=== PATIENT | female | born 1950 | race Caucasian/White ===

== ENCOUNTER 2020-01-26 13:07 | Outpatient (RCR) | payer MEDICARE, SELFPAY ==
--- NOTE | 2020-01-26 14:13 | MHC.PT.DC ---
[facility] [place] [facility] [place] [facility] [place] Office [address] Danny Winston [address] [phone] F: [phone] F: [phone] F: [phone] F: [phone] Physical Therapy Discharge Report Diagnosis: low back pain Date of Surgery: none Date of Evaluation: 01/09/20 Date of Discharge: 01/26/20 Treatments to Date: 4 Cancellations to Date: 0 No Shows to Date: 1 Discharge Status: Achieved Goals Independent with HEP Discharge Summary: The patient arrived with no pain. She feels her pain has drastically reduced She feels she is now independent with her HEP. She is back to full PLOF without limiting pain. She is walking in the community normal distances without pain. 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 Please sign and return to therapist. Thank you for your referral.
== END 2020-02-16 13:48 | disposition other institution (70) ==
LOC: HO.PT 13:07
PROVIDERS: Visit Provider Internal Medicine
DX: M54.5 Low back pain (principal)
CPT/HCPCS: 97110; 97530

== ENCOUNTER → 2020-08-24 08:32 | Outpatient (BNVA) | payer MEDICARE, SELFPAY | PROVIDERS: PCP Internal Medicine; Visit Provider Physician Assistant | DX: M17.11 Unilateral primary osteoarthritis, right knee (principal) | CPT/HCPCS: 20610; 99202; J1040 ==

== ENCOUNTER 2020-08-24 08:55 | Outpatient (REF) | payer MEDICARE, SELFPAY ==
[2020-08-24 10:16] LABS: MANUAL DIFF FLAG NO
[2020-08-24 10:27] LABS: Basophils Absolute Auto 0.1 X10*3/uL (0.0-0.2); Basophils Percent Auto 1.3 % (0-2); Eosinophils Absolute Auto 0.4 X10*3/uL (0.0-0.4); Eosinophils Percent Auto 4.5 % (0-4); Hematocrit 41.4 % (37-47); Hemoglobin 13.2 g/dl (12.0-16.0); Imm Gran Abs Auto 0.03 X10*3/uL (0.00-0.03); Imm Gran Pct Auto 0.4 % (0.0-0.4); Lymphocytes Absolute Auto 2.3 X10*3/uL (1.2-4.9); Lymphocytes Percent Auto 29.9 % (20-40); Mean Corpuscular HGB Conc 31.9 g/dl (31.0-35.0); Mean Corpuscular Hemoglobin 27.7 pg (27.0-33.0); Mean Platelet Volume 10.4 fL (9.4-12.3); Monocytes Absolute Auto 0.7 X10*3/uL (0.1-1.2); Monocytes Percent Auto 8.7 % (2-11); Neutrophils Absolute Auto 4.3 X10*3/uL (2.0-8.3); Neutrophils Percent Auto 55.2 % (45-73); Platelet Count 259 X10*3/uL (160-400); Red Blood Count 4.76 X10*6/uL (4.20-5.50); Red Cell Distribution Width 13.4 % (11.0-16.0); White Blood Count 7.8 X10*3/uL (4.8-10.8)
[2020-08-24 10:59] LABS: Alanine Aminotransferase 12 U/L (0-31); Albumin Level 4.2 g/dL (3.5-5.0); Alkaline Phosphatase 99 U/L (39-117); Anion Gap 15 (12-20); Aspartate Amino Transferase 15 U/L (5-31); Bilirubin Total 0.5 mg/dL (0.0-1.0); Blood Urea Nitrogen 15 mg/dL (9-16); Calcium 9.3 mg/dL (8.4-10.2); Carbon Dioxide 26 mmol/L (22-29); Chloride 103 mmol/L (96-108); Cholesterol 171 mg/dL; Estimated Glomerular Filt Rate > 60; Glucose Fasting 119 mg/dL (60-99); HDL Cholesterol 42 mg/dL; LDL Cholesterol Calculated 96 mg/dl; Potassium 4.2 mmol/L (3.3-5.1); Sodium 140 mmol/L (135-145); Total Protein 7.1 g/dL (6.5-8.0); Triglycerides 165 mg/dL
== END 2020-08-24 08:56 | disposition home or self-care (01) ==
LOC: HO.10HDL 08:55
PROVIDERS: Visit Provider Internal Medicine
DX: Z00.00 Encounter for general adult medical examination without abnormal findings (principal); E78.00 Pure hypercholesterolemia, unspecified; I10 Essential (primary) hypertension; M17.11 Unilateral primary osteoarthritis, right knee
CPT/HCPCS: 36415; 80053; 80061; 85025

== ENCOUNTER 2020-09-19 12:33 | Outpatient (REF) | payer MEDICARE, SELFPAY ==
--- NOTE | ~2020-09-19 | MM_ITS ---
EXAMINATION: MM SCREENING DIGITAL BREAST TOMOSYNTHESIS, BILATERAL CLINICAL INFORMATION: Screening. Asymptomatic. The lifetime risk of breast cancer based on the Tyrer-Cuzick Model is 9%. COMPARISON: Mammography: 07/23/2018, outside mammography 12/30/2016, 11/10/2014 ([facility], [place]). TECHNIQUE: Digital breast tomosynthesis is performed in both the craniocaudal and mediolateral oblique views along with computer-aided detection (CAD). Synthesized 2D images are generated from the tomosynthesis. FINDINGS: There are scattered areas of fibroglandular density (ACR BI-RADS breast composition Category b). There is a fibronodular parenchymal pattern with scattered bilateral stable nodular asymmetries similar to prior exams. There is no developing density, significant mass, or architectural abnormality. Again, there are scattered bilateral isolated and grouped punctate round and grouped coarse calcifications, likely fibroadenomatous changes. The axilla and skin contours are unremarkable. No significant changes from prior exams. MM/MM tomosynthesis screening BI IMPRESSION: No significant changes from prior studies. ASSESSMENT: BI-RADS 2: Benign RECOMMENDATION: Routine annual mammography screening. This patient's information was entered into a reminder system with a target due date for their next mammogram.
== END 2020-09-19 12:34 | disposition home or self-care (01) ==
LOC: HO.MAMMO 12:33
PROVIDERS: PCP Internal Medicine; Visit Provider Internal Medicine
DX: Z12.31 Encounter for screening mammogram for malignant neoplasm of breast (principal)
CPT/HCPCS: 77063; 77067

== ENCOUNTER 2020-09-28 13:04 | Outpatient (REF) | payer MEDICARE, SELFPAY ==
--- NOTE | ~2020-09-28 | XR_ITS ---
EXAMINATION: XR SHOULDER, RIGHT CLINICAL INFORMATION: Pain COMPARISON: None TECHNIQUE: Right shoulder is imaged in 4 views. FINDINGS: There is elevation of the humeral head suggesting chronic rotator cuff degeneration. There are mild degenerative changes acromioclavicular joint and mild spurring greater tuberosity. There is some spurring at the inferior medial humeral head. No erosive change. No visible rotator cuff calcifications. No fracture, dislocation, destructive process. There are multilevel degenerative changes suggested in the cervical spine. XR/XR shoulder RT min 2V IMPRESSION: 1. Elevation humeral head and degenerative changes suggesting chronic rotator cuff degeneration. No visible rotator cuff calcifications. 2. Probable multilevel degenerative changes cervical spine.
== END 2020-09-28 13:05 | disposition home or self-care (01) ==
LOC: HO.XRAY 13:04
PROVIDERS: PCP Internal Medicine; Visit Provider Physician Assistant
DX: M19.011 Primary osteoarthritis, right shoulder (principal)
CPT/HCPCS: 20610; 73030; 99212; J1040

== ENCOUNTER 2020-11-21 16:00 | Outpatient (RCR) | payer MEDICARE, SELFPAY ==
--- NOTE | 2020-10-24 14:58 | MHC.PT.EP ---
[facility] [place] [facility] [place] [facility] [place] Office [address] Winston [address] [phone] F: [phone] F: [phone] F: [phone] F: [phone] Physical Therapy Plan of Care Date of Evaluation: Date of Surgery: Diagnosis: right shoulder impingement Assessment: The patient arrived with reduced shoulder ROM, strength, and functional reaching ability. Imaging shows an elevated humeral head. She likely suffers from secondary shoulder impingement. PT given strength exercises as well as postural improvement education. She is a good candidate for skilled PT Frequency and Duration: The patient will be seen 2x/week x 4 weeks Short Term Goals: Pt to be able to report 50% improvement in functional reaching. - Pt to be able to report 50% less pain with getting dressed. Fdc Goals: 4 weeks - The patient to have greater than 160 degrees of flexion and abduction to show improved functional ROM. 4 weeks ? The patient to have 5/5 strength with flexion and abduction to demonstrate functional strength 4 weeks ? The patient to be able to return to all functional reaching, self care ADL's without any limitation from pain or loss of ROM. Treatment Plan: Modalities to reduce pain, spasms and effusion. Manual therapy to restore motion and function. Therapeutic exercise to improve strength and flexibility. Neuromuscular re-education for posture and balance. Therapeutic activities to return to functional activities of daily living. Electronically signed by: Yasmin Butler PT DPT Please sign and return to therapist. Thank you for your referral.
--- NOTE | 2020-12-20 09:35 | MHC.PT.DC ---
[facility] [place] Office [place] Office [place] Office [address] Danny Winston [address] [phone] F: [phone] F: [phone] F: [phone] F: [phone] Physical Therapy Discharge Report Diagnosis: right shoulder impingement Date of Surgery: Date of Evaluation: 10/24/20 Date of Discharge: 12/20/20 Treatments to Date: 5 Cancellations to Date: No Shows to Date: Discharge Status: Achieved Goals Improved Function Independent with HEP Discharge Summary: Pt demonstrating increased pain free ROM and increased tolerance for strengthening exercises today. Pt continuing to present with TPs and tension in the R UT and mid trap regions that improve for a few days with STM. Electronically signed by: Yasmin Butler PT DPT Please sign and return to therapist. Thank you for your referral.
== END 2020-12-20 08:00 | disposition home or self-care (01) ==
LOC: HO.PT 16:00
PROVIDERS: PCP Internal Medicine; Visit Provider Internal Medicine
DX: M25.511 Pain in right shoulder (principal)
CPT/HCPCS: 97110; 97112; 97140; 97162

== ENCOUNTER 2021-01-15 12:50 | Outpatient (REF) | payer MEDICARE, SELFPAY ==
--- NOTE | ~2021-01-15 | XR_ITS ---
EXAMINATION: XR knee RT 2V, XR knee standing BI CLINICAL INFORMATION: Reason for Exam M25.569 - Pain in unspecified knee COMPARISON: 2019 TECHNIQUE: Bilateral frontal standing, right lateral patella sunrise view. FINDINGS: BONES: No fracture or dislocation is present. JOINTS: Narrowing of joint spaces and developed osteophytes from the edges of articular surfaces suggest degenerative osteoarthritis. SOFT TISSUE: There is chunky soft tissue calcification posterior to the joint unchanged possibly synovial osteochondromatosis, versus accessory ossicles unchanged. 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 No significant knee joint effusion. There is soft tissue calcification posterior to the joint as described above.
--- NOTE | ~2021-01-15 | XR_ITS ---
EXAMINATION: XR knee RT 2V, XR knee standing BI CLINICAL INFORMATION: Reason for Exam M25.569 - Pain in unspecified knee COMPARISON: 2019 TECHNIQUE: Bilateral frontal standing, right lateral patella sunrise view. FINDINGS: BONES: No fracture or dislocation is present. JOINTS: Narrowing of joint spaces and developed osteophytes from the edges of articular surfaces suggest degenerative osteoarthritis. SOFT TISSUE: There is chunky soft tissue calcification posterior to the joint unchanged possibly synovial osteochondromatosis, versus accessory ossicles unchanged. XR/XR knee standing BI IMPRESSION: Early advanced degenerative tricompartmental degenerative osteoarthritis both knees right more than left. No significant knee joint effusion. There is soft tissue calcification posterior to the joint as described above.
== END 2021-01-15 12:51 | disposition home or self-care (01) ==
LOC: HO.HOSX 12:50
PROVIDERS: Visit Provider Physician Assistant
DX: M17.11 Unilateral primary osteoarthritis, right knee (principal)
CPT/HCPCS: 20610; 73560; 73565; 99212; J1040

== ENCOUNTER → 2021-03-04 15:07 | Outpatient (BNVA) | payer MEDICARE, SELFPAY | PROVIDERS: PCP Internal Medicine; Visit Provider Orthopaedic Surgery | DX: M17.11 Unilateral primary osteoarthritis, right knee (principal) | CPT/HCPCS: 99212 ==

== ENCOUNTER → 2021-06-03 12:26 | Outpatient (BNVA) | payer MEDICARE, SELFPAY | PROVIDERS: PCP Internal Medicine; Visit Provider Orthopaedic Surgery | DX: M17.11 Unilateral primary osteoarthritis, right knee (principal) | CPT/HCPCS: 20610; 99212; J1100 ==

== ENCOUNTER 2021-09-20 11:29 | Outpatient (REF) | payer MEDICARE, SELFPAY ==
--- NOTE | ~2021-09-20 | XR_ITS ---
EXAMINATION: XR FOOT, LEFT CLINICAL INFORMATION: M79.672 - Pain in left foot COMPARISON: None TECHNIQUE: AP, lateral, and oblique views of the left foot. FINDINGS: No fracture, dislocation, destructive process. Normal bony mineralization. Retrocalcaneal recess is preserved. Subtalar joint unremarkable. No visible ankle capsular effusion. Small plantar calcaneal spur. Mild spurring dorsal medial mid foot. Osteoarthritic changes first MTP joint with joint narrowing and spurring. No erosive change. Mild hallux valgus, approximately 18 degrees. Mild joint narrowing DIP joints second through fourth toes. No erosive change. XR/XR foot LT min 3V IMPRESSION: -No fracture or destructive process. -Small plantar calcaneal spur. Mild spurring dorsal medial mid foot. -Osteoarthritis first MTP with mild hallux valgus. -Mild joint narrowing 2nd-4th DIP. -No erosive changes.
== END 2021-09-20 11:30 | disposition home or self-care (01) ==
LOC: HO.HOSX 11:29
PROVIDERS: PCP Internal Medicine; Visit Provider Orthopaedic Surgery
DX: M17.11 Unilateral primary osteoarthritis, right knee (principal); M19.072 Primary osteoarthritis, left ankle and foot
CPT/HCPCS: 20610; 73630; 99212; J1100

== ENCOUNTER → 2021-09-25 14:21 | Outpatient (BNVA) | payer MEDICARE, SELFPAY | PROVIDERS: PCP Internal Medicine; Visit Provider Orthopaedic Surgery | DX: M65.332 Trigger finger, left middle finger (principal); M79.645 Pain in left finger(s) | CPT/HCPCS: 20550; 99202; J1100 ==

== ENCOUNTER 2021-10-22 08:36 | Outpatient (REF) | payer MEDICARE, SELFPAY ==
[2021-10-22 09:13] LABS: MANUAL DIFF FLAG NO
[2021-10-22 10:03] LABS: Basophils Absolute Auto 0.1 X10*3/uL (0.0-0.2); Basophils Percent Auto 0.9 % (0-2); Eosinophils Absolute Auto 0.4 X10*3/uL (0.0-0.4); Eosinophils Percent Auto 4.4 % (0-4); Hematocrit 43.3 % (37.0-47.0); Hemoglobin 13.9 g/dl (12.0-16.0); Imm Gran Abs Auto 0.06 X10*3/uL (0.00-0.03); Imm Gran Pct Auto 0.7 % (0.0-0.4); Lymphocytes Absolute Auto 2.6 X10*3/uL (1.2-4.9); Lymphocytes Percent Auto 28.6 % (20-40); Mean Corpuscular HGB Conc 32.1 g/dl (31.0-35.0); Mean Corpuscular Hemoglobin 27.9 pg (27.0-33.0); Mean Corpuscular Volume 86.8 fL (80.0-98.0); Mean Platelet Volume 10.4 fL (9.4-12.3); Monocytes Absolute Auto 0.9 X10*3/uL (0.1-1.2); Monocytes Percent Auto 9.9 % (2-11); Neutrophils Percent Auto 55.5 % (45-73); Platelet Count 254 X10*3/uL (160-400); Red Blood Count 4.99 X10*6/uL (4.20-5.50); Red Cell Distribution Width 13.4 % (11.0-16.0); White Blood Count 8.9 X10*3/uL (4.8-10.8)
[2021-10-22 10:25] LABS: Estimated Average Glucose 126 mg/dL
[2021-10-22 10:32] LABS: Alanine Aminotransferase 24 U/L (0-31); Albumin Level 4.2 g/dL (3.5-5.0); Alkaline Phosphatase 88 U/L (39-117); Anion Gap 12 (12-20); Aspartate Amino Transferase 25 U/L (5-31); Bilirubin Total 0.4 mg/dL (0.0-1.0); Blood Urea Nitrogen 23 mg/dL (9-16); Calcium 9.4 mg/dL (8.4-10.2); Carbon Dioxide 26 mmol/L (22-29); Chloride 106 mmol/L (96-108); Cholesterol 199 mg/dL; Estimated Glomerular Filt Rate > 60; Glucose Random 132 mg/dL (60-115); HDL Cholesterol 48 mg/dL; LDL Cholesterol Calculated 121 mg/dl; Potassium 4.4 mmol/L (3.3-5.1); Sodium 140 mmol/L (135-145); Total Protein 7.3 g/dL (6.5-8.0); Triglycerides 151 mg/dL
[2021-10-22 10:52] LABS: Thyroid Stimulating Hormone 1.41 uIU/mL (0.32-4.0)
== END 2021-10-22 08:37 | disposition home or self-care (01) ==
LOC: HO.LAB 08:36
PROVIDERS: PCP Internal Medicine; Visit Provider Internal Medicine
DX: E78.2 Mixed hyperlipidemia (principal); F33.42 Major depressive disorder, recurrent, in full remission; I10 Essential (primary) hypertension; R73.01 Impaired fasting glucose
CPT/HCPCS: 36415; 80053; 80061; 83036; 84443; 85025

== ENCOUNTER → 2021-12-23 13:41 | Outpatient (BNVA) | payer MEDICARE, SELFPAY | PROVIDERS: PCP Internal Medicine; Visit Provider Orthopaedic Surgery | DX: M17.11 Unilateral primary osteoarthritis, right knee (principal) | CPT/HCPCS: 20610; 99212; J1100 ==

== ENCOUNTER 2022-01-08 13:52 | Outpatient (REF) | payer MEDICARE, SELFPAY ==
--- NOTE | ~2022-01-08 | MM_ITS ---
EXAMINATION: MM SCREENING DIGITAL BREAST TOMOSYNTHESIS, BILATERAL CLINICAL INFORMATION: Screening. Asymptomatic. The lifetime risk of breast cancer based on the Tyrer-Cuzick Model is 10%. COMPARISON: Mammography: 09/19/2020, 07/23/2018, outside mammography 12/30/2016 ([facility]). TECHNIQUE: Digital breast tomosynthesis is performed in both the craniocaudal and mediolateral oblique views along with computer-aided detection (CAD). Synthesized 2D images are generated from the tomosynthesis. FINDINGS: There are scattered areas of fibroglandular density (ACR BI-RADS breast composition Category b). Fibronodular parenchymal pattern is again noted similar to prior studies. There is no developing density or interval architectural abnormality. Scattered bilateral small isolated round and coarse grouped calcifications are again noted. The axilla and skin contours are unremarkable. There are no significant changes from prior studies. MM/MM tomosynthesis screening BI IMPRESSION: No mammographic evidence of malignancy. ASSESSMENT: BI-RADS 2: Benign RECOMMENDATION: Routine annual mammography screening. This patient's information was entered into a reminder system with a target due date for their next mammogram.
== END 2022-01-08 13:53 | disposition home or self-care (01) ==
LOC: HO.MAMMO 13:52
PROVIDERS: PCP Internal Medicine; Visit Provider Internal Medicine
DX: Z12.31 Encounter for screening mammogram for malignant neoplasm of breast (principal)
CPT/HCPCS: 77063; 77067

== ENCOUNTER → 2022-05-01 15:04 | Outpatient (BNVA) | payer MEDICARE, SELFPAY | PROVIDERS: PCP Internal Medicine; Visit Provider Orthopaedic Surgery | DX: M17.11 Unilateral primary osteoarthritis, right knee (principal) | CPT/HCPCS: 99212 ==

== ENCOUNTER → 2022-07-10 14:57 | Outpatient (BNVA) | payer MEDICARE, SELFPAY | PROVIDERS: PCP Internal Medicine; Visit Provider Orthopaedic Surgery ==

== ENCOUNTER 2022-07-16 08:15 | Outpatient (REF) | payer MEDICARE, SELFPAY ==
[2022-07-16 08:25] LABS: MANUAL DIFF FLAG NO
[2022-07-16 08:38] LABS: Basophils Absolute Auto 0.1 X10*3/uL (0.0-0.2); Basophils Percent Auto 0.8 % (0-2); Eosinophils Absolute Auto 0.4 X10*3/uL (0.0-0.4); Eosinophils Percent Auto 4.3 % (0-4); Hematocrit 44.7 % (37.0-47.0); Hemoglobin 14.4 g/dl (12.0-16.0); Imm Gran Abs Auto 0.04 X10*3/uL (0.00-0.03); Imm Gran Pct Auto 0.5 % (0.0-0.4); Lymphocytes Absolute Auto 2.9 X10*3/uL (1.2-4.9); Mean Corpuscular HGB Conc 32.2 g/dl (31.0-35.0); Mean Corpuscular Hemoglobin 28.5 pg (27.0-33.0); Mean Corpuscular Volume 88.3 fL (80.0-98.0); Mean Platelet Volume 10.2 fL (9.4-12.3); Monocytes Absolute Auto 0.8 X10*3/uL (0.1-1.2); Monocytes Percent Auto 8.9 % (2-11); Neutrophils Absolute Auto 4.4 x10*3/uL (2.0-8.3); Neutrophils Percent Auto 51.5 % (45-73); Platelet Count 253 X10*3/uL (160-400); Red Blood Count 5.06 X10*6/uL (4.20-5.50); Red Cell Distribution Width 12.8 % (11.0-16.0); White Blood Count 8.6 X10*3/uL (4.8-10.8)
[2022-07-16 09:12] LABS: Alanine Aminotransferase 24 U/L (0-31); Albumin Level 4.3 g/dL (3.5-5.0); Alkaline Phosphatase 89 U/L (39-117); Anion Gap 13 (12-20); Aspartate Amino Transferase 27 U/L (5-31); Bilirubin Total 0.4 mg/dL (0.0-1.0); Blood Urea Nitrogen 24 mg/dL (9-16); Calcium 9.2 mg/dL (8.4-10.2); Carbon Dioxide 27 mmol/L (22-29); Chloride 105 mmol/L (96-108); Cholesterol 192 mg/dL; Estimated Glomerular Filt Rate > 60; Glucose Random 137 mg/dL (60-115); HDL Cholesterol 51 mg/dL; LDL Cholesterol Calculated 111 mg/dl; Potassium 4.4 mmol/L (3.3-5.1); Sodium 141 mmol/L (135-145); Total Protein 7.1 g/dL (6.5-8.0); Triglycerides 154 mg/dL
== END 2022-07-16 08:16 | disposition home or self-care (01) ==
LOC: HO.LAB 08:15
PROVIDERS: PCP Internal Medicine; Visit Provider Internal Medicine
DX: Z00.00 Encounter for general adult medical examination without abnormal findings (principal); E78.00 Pure hypercholesterolemia, unspecified; I10 Essential (primary) hypertension; M17.11 Unilateral primary osteoarthritis, right knee
CPT/HCPCS: 36415; 80053; 80061; 85025

== ENCOUNTER → 2022-07-28 11:55 | Outpatient (REF) | payer MEDICARE, SELFPAY | LOC: HO.CARD 11:55 | PROVIDERS: PCP Internal Medicine; Visit Provider Internal Medicine | DX: Z13.89 Encounter for screening for other disorder (principal) ==

== ENCOUNTER 2022-07-31 06:08 | Outpatient (REF) | payer MEDICARE, SELFPAY ==
--- NOTE | ~2022-07-31 | XR_ITS ---
EXAMINATION: XR KNEES, STANDING AP BILATERAL XR KNEE, RIGHT CLINICAL INFORMATION: M25.561 - Pain in right knee COMPARISON: Standing AP knees and right knee radiographs 01/15/2021. TECHNIQUE: Bilateral standing AP view of the knees is performed. Right knee is also imaged in lateral and axial patella views. FINDINGS: Right: Tricompartment osteoarthritis greatest medial compartment and lateral patellofemoral joint. Mild secondary genu varus. There are osteophytes from the femoral condyles and tibial plateau and lateral patella. No overt effusion. Again, there are ossicles or synovial chondromatosis posterior capsule region. No fracture or dislocation or destructive process. There is mild lateralization of the patellar again seen. Left: Osteoarthritis greater medial compartment with joint narrowing and osteophytes. Mild secondary genu varus. No erosive change or chondrocalcinosis. Lateral patella spurring. XR/XR knee standing BI IMPRESSION: Right: -Tricompartment osteoarthritis, greatest medial compartment and lateral patellofemoral joint. -Ossicles or synovial chondromatosis posterior capsule. No overt effusion. Left: -Osteoarthritis greater medial compartment.
--- NOTE | ~2022-07-31 | XR_ITS ---
EXAMINATION: XR KNEES, STANDING AP BILATERAL XR KNEE, RIGHT CLINICAL INFORMATION: M25.561 - Pain in right knee COMPARISON: Standing AP knees and right knee radiographs 01/15/2021. TECHNIQUE: Bilateral standing AP view of the knees is performed. Right knee is also imaged in lateral and axial patella views. FINDINGS: Right: Tricompartment osteoarthritis greatest medial compartment and lateral patellofemoral joint. Mild secondary genu varus. There are osteophytes from the femoral condyles and tibial plateau and lateral patella. No overt effusion. Again, there are ossicles or synovial chondromatosis posterior capsule region. No fracture or dislocation or destructive process. There is mild lateralization of the patellar again seen. Left: Osteoarthritis greater medial compartment with joint narrowing and osteophytes. Mild secondary genu varus. No erosive change or chondrocalcinosis. Lateral patella spurring. XR/XR knee RT 2V IMPRESSION: Right: -Tricompartment osteoarthritis, greatest medial compartment and lateral patellofemoral joint. -Ossicles or synovial chondromatosis posterior capsule. No overt effusion. Left: -Osteoarthritis greater medial compartment.
== END 2022-07-31 06:09 | disposition home or self-care (01) ==
LOC: HO.HOSX 06:08
PROVIDERS: Visit Provider Physician Assistant
DX: Z01.818 Encounter for other preprocedural examination (principal); M17.11 Unilateral primary osteoarthritis, right knee
CPT/HCPCS: 73560; 73565; 99212

== ENCOUNTER 2022-08-05 07:45 | Inpatient (IN) | payer MEDICARE, OTHER, SELFPAY ==
--- NOTE | 2022-07-28 | ECG_ITS ---
Test Reason : preop Blood Pressure : / mmHG Vent. Rate : 059 BPM Atrial Rate : 059 BPM P-R Int : 182 ms QRS Dur : 088 ms QT Int : 386 ms P-R-T Axes : 067 086 064 degrees QTc Int : 382 ms Sinus bradycardia Nonspecific T wave abnormality Abnormal ECG No previous ECGs available Referred By: Santos Snyder Electronically Signed By:Angelo Munson
[2022-07-28 12:34] VITALS: BP 172/86; PULSE 70; RESP 16; O2SAT 96; BMI 32.4
[2022-07-28 15:02] LABS: MRSA Nasal PCR NEGATIVE (Negative); SA Nasal PCR POSITIVE (Negative)
--- NOTE | 2022-08-04 10:22 | HO.ANESPROP2 ---
Documented by User: Maureen Higuera NP 08/04/22 12:12 HPI - Anesthesia Eval Consult details Narrative: 72yo F for Right Knee Replacement Total PCP cleared - Per Judy Sanchez RN: PCP aware of abnormal EKG and OK to proceed. No previous EKGs available at [facility] or PCP office. Reviewed with Dr Enriquez. [facility] Active Problems Active Problems: All Active Problems (Updated 07/25/22 @ 10:14 by Octavia Parks RN) Osteoarthritis of right knee (Acute) Shoulder pain (Acute) Osteoarthritis of right shoulder (Acute) Osteoarthritis of midtarsal joint of left foot (Acute) Trigger finger, left middle finger (Acute) Pain of left thumb (Acute) Past Medical History Medical History ADD (attention deficit disorder) Asthma Depression High cholesterol HTN (hypertension) Osteoarthritis Overactive bladder Seasonal allergies Thrombocytosis Surgical History Surgical History History of colon resection Hx of colonoscopy Hx of surgical procedure Hx of tonsillectomy Hx of wisdom tooth extraction Social History Social History Are you a primary care management coordinator to a significant other at home: No Do you presently have visiting nurse or other home services: No Alcohol intake: never Patient Tobacco Use Status: Never used Tobacco Current occupational status: employed 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 Meds Allergies Allergy/AdvReac Type Severity Reaction Status Date / Time environmental allergies Allergy Intermediate Sneezing, Verified 08/05/22 08:13 itchy eyes erythromycin base Allergy Intermediate Blister Verified 08/05/22 08:13 Seasonal Allergies Allergy Intermediate Sneezing, Verified 08/05/22 08:13 itchy eyes, congestion Home Medications Medication Instructions Recorded Confirmed Last Taken Type loratadine 10 mg tablet (Claritin) 10 mg PO .DAILY@NOON 08/24/20 07/28/22 08/04/22 History omeprazole 20 mg capsule,delayed 20 mg PO DAILY@1200 08/24/20 08/05/22 08/04/22 History release albuterol sulfate 90 mcg/actuation 2 puff inhalation QID PRN 09/28/20 07/25/22 Unknown History aerosol inhaler Shortness Of Breath Or Wheezing sertraline 100 mg tablet 100 mg PO .DAILY@NOON 09/28/20 08/05/22 08/04/22 History rosuvastatin 40 mg tablet 40 mg PO DAILY@1200 12/23/21 08/05/22 08/04/22 History triamcinolone acetonide 55 mcg 1 spray intranasal BEDTIME 07/25/22 07/28/22 Unknown History nasal spray aerosol (Nasacort) cyclosporine 0.05 % eye drops in a 1 drp ophthalmic (eye) Q12H 07/28/22 08/05/22 08/04/22 History dropperette (Restasis) diphenhydramine HCl 25 mg tablet 25 mg PO TID PRN Allergy Symptoms 07/28/22 07/28/22 Unknown History ([place] Plus Allergy) melatonin BEDTIME 07/28/22 Unknown History multivitamin 1 tab PO BEDTIME 07/28/22 07/28/22 08/04/22 History hydrochlorothiazide 12.5 mg capsule 12.5 mg PO DAILY 07/31/22 08/04/22 History oxybutynin chloride 15 mg 15 mg PO DAILY 07/31/22 08/04/22 History tablet,extended release 24 hr losartan 50 mg tablet 50 mg PO DAILY 08/05/22 08/04/22 History Exam Exam Date and Time: August 04, 2022 1022 Height,Weight and Vital Signs: Height 5 ft 2 in Weight 80.4 kg Last Vital Signs Pulse 70 07/28/22 12:34 Resp 16 07/28/22 12:34 BP 172/86 H 07/28/22 12:34 Pulse Ox 96 07/28/22 12:34 O2 Del Method Room Air 07/28/22 12:34 Pertinent Lab Results Pertinent Lab Results: Laboratory Tests 07/28/22 07/28/22 12:30 13:35 Nasal Screen MRSA (PCR) NEGATIVE Nasal S. aureus Screen POSITIVE A Nasal MRSA/S.aureus Interp SEE NOTE Blood Type A Positive Antibody Screen NEGATIVE Laboratory Tests 07/16/22 07/16/22 08:23 08:23 WBC 8.6 Hgb 14.4 Hct 44.7 Plt Count 253 Sodium 141 Potassium 4.4 Chloride 105 Carbon Dioxide 27 BUN 24 H Creatinine 0.86 Narrative Narrative: EKG 07/2022 Vent. Rate : 059 BPM ? ? Atrial Rate : 059 BPM ?? P-R Int : 182 ms? QRS Dur : 088 ms ? ? QT Int : 386 ms ? ? ? P-R-T Axes : 067 086 064 degrees ?? QTc Int : 382 ms ? Sinus bradycardia Nonspecific T wave abnormality Abnormal ECG No previous ECGs available Assessment and Plan Assessment Anesthesia Assessment: Chart Reviewed Documented by User: Tyson Molina MD 08/05/22 13:38 HPI - Anesthesia Eval Consult details Narrative: 72yo F for Right Knee Replacement Total no Chest pain , FS greater than 4 mets PCP cleared - Per Judy Sanchez RN: PCP aware of abnormal EKG and OK to proceed. No previous EKGs available at [facility] or PCP office. Reviewed with Dr Enriquez. [facility] Past Medical History Medical History ADD (attention deficit disorder) Asthma Depression High cholesterol HTN (hypertension) Osteoarthritis Overactive bladder Seasonal allergies Thrombocytosis Functional capacity: independent ambulation Family History Family history of problems with anesthesia: No Surgical History Surgical History History of colon resection Hx of colonoscopy Hx of surgical procedure Hx of tonsillectomy Hx of wisdom tooth extraction History of Problems with Anesthesia: No Social History Social History Are you a primary care management coordinator to a significant other at home: No Do you presently have visiting nurse or other home services: No Alcohol intake: never Patient Tobacco Use Status: Never used Tobacco Current occupational status: employed 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 Meds Allergies Allergy/AdvReac Type Severity Reaction Status Date / Time environmental allergies Allergy Intermediate Sneezing, Verified 08/05/22 08:13 itchy eyes erythromycin base Allergy Intermediate Blister Verified 08/05/22 08:13 Seasonal Allergies Allergy Intermediate Sneezing, Verified 08/05/22 08:13 itchy eyes, congestion Home Medications Medication Instructions Recorded Confirmed Last Taken Type loratadine 10 mg tablet (Claritin) 10 mg PO .DAILY@NOON 08/24/20 07/28/22 08/04/22 History omeprazole 20 mg capsule,delayed 20 mg PO DAILY@1200 08/24/20 08/05/22 08/04/22 History release albuterol sulfate 90 mcg/actuation 2 puff inhalation QID PRN 09/28/20 07/25/22 Unknown History aerosol inhaler Shortness Of Breath Or Wheezing sertraline 100 mg tablet 100 mg PO .DAILY@NOON 09/28/20 08/05/22 08/04/22 History rosuvastatin 40 mg tablet 40 mg PO DAILY@1200 12/23/21 08/05/22 08/04/22 History triamcinolone acetonide 55 mcg 1 spray intranasal BEDTIME 07/25/22 07/28/22 Unknown History nasal spray aerosol (Nasacort) cyclosporine 0.05 % eye drops in a 1 drp ophthalmic (eye) Q12H 07/28/22 08/05/22 08/04/22 History dropperette (Restasis) diphenhydramine HCl 25 mg tablet 25 mg PO TID PRN Allergy Symptoms 07/28/22 07/28/22 Unknown History ([place] Plus Allergy) melatonin BEDTIME 07/28/22 Unknown History multivitamin 1 tab PO BEDTIME 07/28/22 07/28/22 08/04/22 History hydrochlorothiazide 12.5 mg capsule 12.5 mg PO DAILY 07/31/22 08/04/22 History oxybutynin chloride 15 mg 15 mg PO DAILY 07/31/22 08/04/22 History tablet,extended release 24 hr losartan 50 mg tablet 50 mg PO DAILY 08/05/22 08/04/22 History Exam Airway Mallampati Class: IV Neck ROM: Full Loose/Missing/Broken Teeth: Yes (chipped teeth) Assessment and Plan Assessment Anesthesia Assessment: Anesthesia Plan Discussed Final Anesthetic Review Family History of Problems with Anesthesia: No History of Problems with Anesthesia: No NPO: Yes ASA Class: III Final Preanesthetic Review: Meds/Allgs Chart Reviewed, Consent Obtained/Reviewed and Anes Risks/Benef Reviewed Patient Risk: Intermediate Procedure Risk: Intermediate Assessment/Block/Sedation in SS: Assess/Block/Sedation-SS Anesthetic Plan Anesthetic Plan: Spinal and Regional Block Disposition: Standard PACU
[2022-08-05] VITALS (22 sets, daily range): BP systolic 99–157; BP diastolic 50–90; PULSE 56–74; RESP 16–20; TEMP 36.1–36.8; O2SAT 89–98
--- NOTE | ~2022-08-05 | CT_ITS ---
EXAMINATION: CT ANGIOGRAM OF THE CHEST WITH AND WITHOUT CONTRAST (CT PULMONARY ANGIOGRAM FOR PE) CLINICAL INFORMATION: Hypoxia post operative. COMPARISON: Chest x-ray of 08/07/2022. TECHNIQUE: Prior to contrast administration, noncontrast localization images were obtained. Subsequently, multidetector volumetric imaging was performed from the thoracic inlet to below the diaphragms following the administration of 65 mL Omnipaque 350 intravenous contrast. No contrast reaction reported Sagittal, coronal, and MIP oblique sagittal reformatted images were obtained on the CT workstation, uploaded to PACS, and reviewed. This CT examination was performed using dose optimization techniques as appropriate, variously including the following: *Automated exposure control *Adjustment of mA and/or kV according to patient size (this includes techniques or standardized protocols for targeted exams where dose is matched to indication/reason for exam; i.e. extremities or head) *Use of iterative reconstruction technique Total exam dose-length product 142 mGy-cm FINDINGS: QUALITY OF STUDY/CONTRAST BOLUS: Satisfactory. PULMONARY ARTERIES: No pulmonary emboli. THORACIC AORTA: No aneurysm or dissection identified. LUNG: There is some elevation of the right hemidiaphragm with diminished right lung volume. The central airways are patent. There is diffuse bronchial wall thickening seen bilaterally without bronchiectasis. There are scattered regions of ground-glass opacity bilaterally which is a nonspecific finding and may be related to small airways disease, infectious process, or pulmonary vascular congestion, as well as a large differential diagnosis of etiologies. There are some mild regions of dependent confluent disease at the lung bases consistent with dependent atelectasis. PLEURA: No pleural effusion or pneumothorax. MEDIASTINUM: Heart upper limits of normal in size. No pericardial effusion. No hilar or mediastinal lymphadenopathy. Visualized thyroid gland unremarkable. No evidence of septal bowing or right heart strain. CORONARY ARTERY CALCIFICATION: Coronary artery calcification is present. CHEST WALL/AXILLA: No axillary or internal mammary lymphadenopathy. OSSEOUS STRUCTURES: No acute or suspicious osseous abnormality. Bone island is seen within the left 3rd rib. There is multilevel degenerative disc disease. UPPER ABDOMEN: There is some fatty atrophy of the pancreas. No reflux of contrast into the hepatic veins to suggest elevated right heart pressures. CT/CT angio chest PE protocol IMPRESSION: No evidence of acute pulmonary artery embolus. No evidence of thoracic aortic aneurysm or dissection. Elevation of the right hemidiaphragm with basilar atelectatic change. Diffuse scattered regions of ground-glass opacity which may be related to atelectasis, small airways disease, or pulmonary vascular congestion, as well as other etiologies such as infectious. VTE: negative
--- NOTE | ~2022-08-05 | XR_ITS ---
EXAMINATION: XR CHEST CLINICAL INFORMATION: Hypoxia COMPARISON: None available. TECHNIQUE: AP portable view of the chest was obtained. FINDINGS: There is no evidence of acute parenchymal disease, pneumothorax, or pleural effusion. Heart normal size. No evidence of pulmonary edema. There is elevation of the right hemidiaphragm. There is bilateral degenerative change of the shoulders with superior subluxation and loss of the space between the humeral head and acromion with spurring. There is some sclerosis with some articular irregularity. XR/XR chest 1V IMPRESSION: No acute disease. Degenerative change of the shoulders bilaterally.
--- NOTE | ~2022-08-05 | XR_ITS ---
EXAMINATION: XR KNEE, RIGHT CLINICAL INFORMATION: TKA right knee COMPARISON: None available. TECHNIQUE: Two views of the right knee. FINDINGS: There is a total right knee arthroplasty with prosthetic components in satisfactory alignment. There is gas and minimal fluid in the joint space. There are surgical candi along the anterior knee from recent surgery. XR/XR knee RT 2V IMPRESSION: Total right knee arthroplasty with prosthetic components in satisfactory alignment. Immediate postoperative changes are noted.
--- NOTE | 2022-08-05 07:42 | MHC.SHP ---
Pre-Procedural Eval Section A Date of Service: 08/05/22 The patient is an INPATIENT: No Changes since office visit: No Cold of Flu in the past 2 weeks, No New Medical Problems, No Changes in Medication and No Patient answered all questions The History & Physical has been completed within 30 days and I have reviewed it.: Yes Section B Chief Complaint: Unilateral primary osteoarthritis, right knee Allergies: Allergies Allergy/AdvReac Type Severity Reaction Status Date / Time environmental allergies Allergy Intermediate Sneezing, Verified 07/31/22 14:51 itchy eyes erythromycin base Allergy Intermediate Blister Verified 07/31/22 14:51 Seasonal Allergies Allergy Intermediate Sneezing, Verified 07/31/22 14:51 itchy eyes, congestion Plan I have reviewed the history and physical and performed a pertinent physical examination on my patient. No changes have occurred unless specified. Time Spent With Patient Time: Total time managing care of this patient today ____ minutes.
[2022-08-05 08:16] LABS: COVID-19 Test Negative (Negative); IDNOW Serial# BCCEAD1C
[2022-08-05 08:23] LABS: Hematocrit 44.9 % (37.0-47.0); Hemoglobin 14.9 g/dl (12.0-16.0)
[2022-08-05] MEDS: Albuterol Sulfate (0.083%) 2.5 MG/3 ML VIAL.NEB INHALE (08:31)
[2022-08-05] MEDS: Lactated Ringers 1,000 ML 100 ML IVCONT ×3 (08:56→23:41)
--- NOTE | 2022-08-05 11:17 | P.BOP_ITS ---
Brief Operative Note Date of Service: 08/05/22 Pre-op diagnosis: Right knee OA Post-op diagnosis: same Procedure: Right TKA Implants: Alycia press fit cruciate retaining 06/28/11 Surgeon: Ozzie Cardoza MD Anesthesia: regional and spinal Was an [employer] used for this Procedure?: Yes [employer]: Santos Snyder Estimated blood loss (mL): 250 IV fluids (mL): 1,000 Pathology: other Condition: stable Disposition: PACU
[2022-08-05] MEDS: oxyCODONE HCl Immed Release 5 MG TABLET PO ×3 (13:14→22:22)
[2022-08-05] MEDS: Acetaminophen 325 MG TABLET 650 MG PO ×2 (13:15→20:02)
[2022-08-05] MEDS: fentaNYL citrate/PF 100 MCG/2 ML VIAL 25 MCG IVPUSH ×2 (13:18→13:33)
--- NOTE | 2022-08-05 13:53 | P.CONHOSP_ITS ---
History of Present Illness Data of Consult Service Date: 08/05/22 Requesting physician: Ozzie Cardoza Primary Care Provider: Ro Armstorng MD HPI 72-year-old woman with history of hypertension, asthma admitted by Orthopedic surgery and is status post right total knee arthroplasty. Surgery was unremarkable. Patient has no complaints of any pain or discomfort at this time. She has been able to eat and drink without any nausea vomiting. She is hemodynamically stable at this time. Review of Systems Review of Systems: Denies any recent fever chills or decrease in appetite respiratory denies any shortness of breath coverage production cardiovascular denies chest pain gastrointestinal denies any dysphagia abdominal pain nausea vomiting or diarrhea genitourinary denies any dysuria frequency or hematuria musculoskeletal denies any joint pain or swelling neuropsych denies any weakness or seizures all other systems reviewed are negative [facility] Medical History ADD (attention deficit disorder) Asthma Depression High cholesterol HTN (hypertension) Osteoarthritis Overactive bladder Seasonal allergies Thrombocytosis Functional capacity: independent ambulation Surgical History History of colon resection Hx of colonoscopy Hx of surgical procedure Hx of tonsillectomy Hx of wisdom tooth extraction Social History Household Members: Significant Other Housing: House Are you a primary care transition manager to a significant other at home: No Do you presently have visiting nurse or other home services: No Alcohol intake: never Patient Tobacco Use Status: Never used Tobacco Substance Use Type: Marijuana Current occupational status: employed 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 Meds Allergies Allergy/AdvReac Type Severity Reaction Status Date / Time environmental allergies Allergy Intermediate Sneezing, Verified 08/05/22 08:13 itchy eyes erythromycin base Allergy Intermediate Blister Verified 08/05/22 08:13 Seasonal Allergies Allergy Intermediate Sneezing, Verified 08/05/22 08:13 itchy eyes, congestion Active Medications: Current Medications Acetaminophen (Acetaminophen 325 Mg Tablet) 650 mg PO Q6H PRN PRN Reason: Pain, Mild (Pain Scale 1-3) Last Admin: 08/05/22 13:15 Dose: 650 mg Albuterol Sulfate (Albuterol Sulfate 90 Mcg 8 Gm Inhaler) 2 puff INHALE QID PRN PRN Reason: Shortness Of Breath Or Wheezing Aspirin (Aspirin 325 Mg Tablet) 325 mg PO BID [facility] Celecoxib (Celecoxib 200 Mg Capsule) 200 mg PO BID [facility] Diphenhydramine HCl (Diphenhydramine Hcl 25 Mg Capsule) 25 mg PO TID PRN PRN Reason: Allergy Symptoms Docusate Sodium (Docusate Sodium 100 Mg Capsule) 100 mg PO BID [facility] Fentanyl (Fentanyl Citrate/Pf 100 Mcg/2 Ml Vial) 25 mcg IVPUSH Q15M PRN; Protocol PRN Reason: Pain, Moderate (Pain Scale 4-6 Last Admin: 08/05/22 13:33 Dose: 25 mcg Hydromorphone HCl (Hydromorphone Hcl 0.5 Mg/0.5 Ml Syringe) 0.25 mg IVPUSH Q4H PRN; Protocol PRN Reason: Pain, Severe (Pain Scale 7-10) Lactated Ringer's (Lr) 1,000 mls @ 100 mls/hr IVCONT .Q10H [facility] Stop: 08/06/22 11:31 Cefazolin Sodium/Dextrose (Ancef) 2 gm in 50 mls @ 100 mls/hr IV POSTOP ONE Stop: 08/05/22 14:19 Loratadine (Loratadine 10 Mg Tablet) 10 mg PO .DAILY@NOON [facility] Non-Formulary Medication (Cyclosporine [Restasis]) 1 drop EYE-BOTH Q12H [facility] Non-Formulary Medication (Multivitamin) 1 tab PO BEDTIME [facility] Non-Formulary Medication (Rosuvastatin) 40 mg PO DAILY@1200 [facility] Non-Formulary Medication (Triamcinolone Acetonide [Nasacort]) 1 spray NOSTRIL-B BEDTIME [facility] Omeprazole (Omeprazole 20 Mg Capsule.Dr) 20 mg PO DAILY@1200 [facility] Ondansetron HCl (Ondansetron Hcl 4 Mg/2 Ml Vial) 4 mg IVPUSH Q8H PRN PRN Reason: Nausea and Vomiting Oxycodone HCl (Oxycodone Hcl Immed Release 5 Mg Tablet) 5 mg PO Q4H PRN PRN Reason: Pain, Moderate (Pain Scale 4-6 Last Admin: 08/05/22 13:14 Dose: 5 mg Oxycodone HCl (Oxycodone Hcl Er 10 Mg Tab.Er.12h) 10 mg PO BID [facility] Sertraline HCl (Sertraline Hcl 100 Mg Tablet) 100 mg PO .DAILY@NOON [facility] Sodium Chloride (0.9 % Sodium Chloride Flush 3 Ml Syringe) 3 ml IVFLUSH QSHIFT [facility] Home Medications Medication Instructions Recorded Confirmed Last Taken Type loratadine 10 mg tablet (Claritin) 10 mg PO .DAILY@NOON 08/24/20 07/28/22 08/04/22 History omeprazole 20 mg capsule,delayed 20 mg PO DAILY@1200 08/24/20 08/05/22 08/04/22 History release albuterol sulfate 90 mcg/actuation 2 puff inhalation QID PRN 09/28/20 07/25/22 Unknown History aerosol inhaler Shortness Of Breath Or Wheezing sertraline 100 mg tablet 100 mg PO .DAILY@NOON 09/28/20 08/05/22 08/04/22 History rosuvastatin 40 mg tablet 40 mg PO DAILY@119912/23/21 08/05/22 08/04/22 History triamcinolone acetonide 55 mcg 1 spray intranasal BEDTIME 07/25/22 07/28/22 Unknown History nasal spray aerosol (Nasacort) cyclosporine 0.05 % eye drops in a 1 drp ophthalmic (eye) Q12H 07/28/22 08/05/22 08/04/22 History dropperette (Restasis) diphenhydramine HCl 25 mg tablet 25 mg PO TID PRN Allergy Symptoms 07/28/2207/17 Unknown History (Anjelica-Williams Plus Allergy) melatonin 1 mg PO BEDTIME 07/28/22 08/05/22 08/04/22 History multivitamin 1 tab PO BEDTIME 07/28/22 07/28/22 08/04/22 History hydrochlorothiazide 12.5 mg capsule 12.5 mg PO DAILY 07/31/22 08/05/22 08/04/22 History oxybutynin chloride 15 mg 15 mg PO DAILY 07/31/22 08/05/22 08/04/22 History tablet,extended release 24 hr olopatadine 0.2 % eye drops 1 drp ophthalmic (eye) DAILY 08/05/22 08/05/22 Unknown History (Pataday Once Daily Relief) Physical Exam Vital Signs and Narrative: Vital Signs: Last Vital Signs Temp 98.2 F 08/05/22 13:38 Pulse 60 08/05/22 13:38 Resp 16 08/05/22 13:38 BP 124/75 08/05/22 13:38 Pulse Ox 95 08/05/22 13:38 O2 Del Method Room Air 08/05/22 13:38 BMI result Body Mass Index 32.4 Appearing in no acute distress head is normocephalic atraumatic eyes pupils are PERRLA sclera is anicteric mouth throat mucous membranes are intact and moist neck is supple no lymphadenopathy, no JVD noted lung sounds are clear to auscultation heart regular rate rhythm, clear S1, S2 positive bowel sounds, abdomen is soft, nontender neuro patient is alert x3, no focal deficits Right knee surgical incision covered with surgical dressing, will not visualized, dressing clean dry and intact Results Labs 08/05/22 08:13 Labs: Laboratory Results - last 24 hr 08/05/22 07:50 COVID-19 ([facility]) Negative COVID-19 Clin Com See Note Assessment and Plan (1) Osteoarthritis of right knee: Status: Acute Plan 72-year-old woman admitted by Orthopedic surgery and is status post right total knee arthroplasty Right total knee arthroplasty Management as per surgical team Pain management Asthma No exacerbation Albuterol as needed Hypertension Stable blood pressure Mental health Continue home medications Overactive bladder Continue oxybutynin Hyperlipidemia Statin GERD Continue PPI DVT prophylaxis with full-dose aspirin Medical consultation completed. Will sign off Time Spent With Patient Time: Total time managing care of this patient today ____ minutes.
[2022-08-05] MEDS: HYDROmorphone HCl 0.5 MG/0.5 ML SYRINGE 0.25 MG IVPUSH ×3 (14:20→23:42)
[2022-08-05] MEDS: Omeprazole 20 MG CAPSULE.DR PO (14:22)
--- NOTE | 2022-08-05 14:22 | PHA.MEDREC ---
Pharmacy Consult ? Medication Reconciliation Pharmacy has completed the medication reconciliation. Pharmacy has reviewed med rec done by short stay nursing and after speaking to patient made some updates to her med list.
[2022-08-05] MEDS: ceFAZolin Sodium/Dextrose,Iso 2 GM/50 ML PIGGYBACK IV (15:49)
[2022-08-05] MEDS: Docusate Sodium 100 MG CAPSULE PO (20:00)
[2022-08-05] MEDS: Melatonin 3 MG TABLET 1.5 MG PO (20:00)
[2022-08-05] MEDS: Multivitamin TABLET 1 TAB PO (20:00)
[2022-08-05] MEDS: Celecoxib 200 MG CAPSULE PO (20:00)
[2022-08-05] MEDS: oxyCODONE HCl ER 10 MG TAB.ER.12H PO (20:01)
[2022-08-05] MEDS: Fluticasone Propionate Nasal 16 GM SPRAY 2 SPRAY NOSTRIL-B (20:07)
--- NOTE | 2022-08-05 20:34 | PC.NURSE ---
Patient voided 100ml of yellow urine ,bladder scanned for 186 ml now,will monitor
[2022-08-05] MEDS: 0.9 % Sodium Chloride Flush 3 ML SYRINGE IVFLUSH (23:42)
[2022-08-06 03:29] VITALS: BP 104/54; PULSE 71; RESP 14; TEMP 36.9; O2SAT 94
[2022-08-06] MEDS: oxyCODONE HCl Immed Release 5 MG TABLET PO ×3 (06:01→15:54)
[2022-08-06 06:08] LABS: MANUAL DIFF FLAG NO
[2022-08-06 06:15] LABS: Basophils Percent Auto 0.4 % (0-2); Eosinophils Absolute Auto 0.1 X10*3/uL (0.0-0.4); Eosinophils Percent Auto 0.9 % (0-4); Hematocrit 30.5 % (37.0-47.0); Hemoglobin 10.2 g/dl (12.0-16.0); Imm Gran Abs Auto 0.05 X10*3/uL (0.00-0.03); Imm Gran Pct Auto 0.5 % (0.0-0.4); Lymphocytes Absolute Auto 1.9 X10*3/uL (1.2-4.9); Lymphocytes Percent Auto 18.6 % (20-40); Mean Corpuscular HGB Conc 33.4 g/dl (31.0-35.0); Mean Corpuscular Hemoglobin 28.1 pg (27.0-33.0); Mean Platelet Volume 10.6 fL (9.4-12.3); Monocytes Absolute Auto 1.3 X10*3/uL (0.1-1.2); Monocytes Percent Auto 13.1 % (2-11); Neutrophils Absolute Auto 6.6 x10*3/uL (2.0-8.3); Neutrophils Percent Auto 66.5 % (45-73); Platelet Count 158 X10*3/uL (160-400); Red Blood Count 3.63 X10*6/uL (4.20-5.50); Red Cell Distribution Width 12.6 % (11.0-16.0); White Blood Count 9.9 X10*3/uL (4.8-10.8)
[2022-08-06 06:40] LABS: Anion Gap 10 (12-20); Blood Urea Nitrogen 13 mg/dL (9-16); Calcium 8.3 mg/dL (8.4-10.2); Carbon Dioxide 29 mmol/L (22-29); Chloride 97 mmol/L (96-108); Creatinine Clr Calc Pharmacy 72.3; Estimated Glomerular Filt Rate > 60; Glucose Fasting 121 mg/dL (60-99); Sodium 132 mmol/L (135-145)
[2022-08-06 07:25] VITALS: BP 117/65; PULSE 88; RESP 19; TEMP 36.6; O2SAT 92
--- NOTE | 2022-08-06 08:01 | PM.PNORT ---
Subjective Subjective Date of Service: 08/06/22 Interval history: pod 1 status post right TKA with Dr. Cardoza. Patient is resting comfortably in bed. Just came back from ambulating to the restroom. No overnight complaints. Pain is well managed. No additional complaints. Physical Exam Vital Signs: Vital Signs: Last Vital Signs Temp 98 F 08/06/22 07:25 Pulse 88 08/06/22 07:25 Resp 19 08/06/22 07:25 BP 117/65 08/06/22 07:25 Pulse Ox 92 08/06/22 07:25 O2 Del Method Nasal Cannula 08/06/22 07:25 O2 Flow Rate 2 08/06/22 07:25 BMI result Body Mass Index 32.4 Const: General: cooperative, healthy appearing and no acute distress Resp: Effort & Inspection: normal respiratory effort and able to speak in complete sentences Cardio: Rate: regular rate Peripheral pulses: Peripheral pulses 2+ throughout GI: Palpation (GI): Soft to palpation Skin: Lesions: no lesions Rashes: no rashes Extrem: Other: Right knee Aquacel is clean dry and intact. Able to dorsiflex and plantar flex. NVI. Procedures Date of Service Date of Service: 08/06/22 Progress Note: A&P Assessment and plan (1) Status post total right knee replacement: Status: Acute Plan Continue pain mgmnt Begin ASA for dvt ppx begin PT for RTKA Dispo planning-Pending PT eval, pain mgmnt Time Spent With Patient Time: Total time managing care of this patient today ____ minutes. Quality Stroke Does the patient have a stroke diagnosis?: No VTE Prior VTE?: No VTE Risk Level:: Medical - moderate - high VTE Device Contraindication: N/A - Device Ordered VTE Drug Contraindication: N/A - Med Ordered
[2022-08-06] MEDS: Aspirin 325 MG TABLET PO ×2 (08:59→19:33)
[2022-08-06] MEDS: Docusate Sodium 100 MG CAPSULE PO ×2 (09:00→19:35)
[2022-08-06] MEDS: oxyBUTYnin chloride ER 5 MG TAB.ER.24 15 MG PO (09:00)
[2022-08-06] MEDS: Celecoxib 200 MG CAPSULE PO ×2 (09:00→19:36)
[2022-08-06] MEDS: oxyCODONE HCl ER 10 MG TAB.ER.12H PO ×2 (09:01→19:35)
[2022-08-06] MEDS: hydroCHLOROthiazide 12.5 MG TABLET PO (09:01)
[2022-08-06] MEDS: HYDROmorphone HCl 0.5 MG/0.5 ML SYRINGE 0.25 MG IVPUSH ×2 (09:02→13:28)
[2022-08-06] MEDS: Acetaminophen 325 MG TABLET 650 MG PO (10:43)
[2022-08-06] MEDS: Lactated Ringers 1,000 ML 100 ML IVCONT (10:44)
--- NOTE | 2022-08-06 11:01 | MHC.CM.PN ---
met with pt who lives with grandchildren pt is trudy coyle x4 has own ride home physical therapy recommending home pt referal to [facility]
--- NOTE | 2022-08-06 12:51 | HO.POSTANES ---
Post Anesthesia Evaluation Post Anesthesia Evaluation Vital Signs: Vital Signs Temp Pulse Resp BP Pulse Ox O2 Del Method O2 Flow Rate 08/06/22 07:25 98 F 88 19 117/65 92 Nasal Cannula 2 08/06/22 03:29 98.4 F 71 14 104/54 L 94 Nasal Cannula Anesthesia: Spinal and Nerve Block Mental Status: Awake Pain Control: Satisfactory Nausea/Vomiting: None Hydration: Adequate Anesthesia-Related Issues: No Anes. Related Issues
[2022-08-06 12:58] VITALS: O2SAT 84
[2022-08-06] MEDS: Sertraline HCL 100 MG TABLET PO (13:27)
[2022-08-06] MEDS: Omeprazole 20 MG CAPSULE.DR PO (13:27)
[2022-08-06] MEDS: Atorvastatin Calcium 80 MG TABLET PO (13:27)
[2022-08-06] MEDS: Loratadine 10 MG TABLET PO (13:27)
[2022-08-06 15:15] VITALS: BP 121/59; PULSE 73; RESP 18; TEMP 36.2; O2SAT 94
[2022-08-06] MEDS: 0.9 % Sodium Chloride Flush 3 ML SYRINGE IVFLUSH (15:48)
[2022-08-06] MEDS: Melatonin 3 MG TABLET 1.5 MG PO (19:34)
[2022-08-06 19:35] VITALS: BP 149/70; PULSE 93; RESP 18; TEMP 36.2; O2SAT 96
[2022-08-06] MEDS: Fluticasone Propionate Nasal 16 GM SPRAY 2 SPRAY NOSTRIL-B (19:36)
[2022-08-06] MEDS: Multivitamin TABLET 1 TAB PO (19:36)
[2022-08-07] VITALS (7 sets, daily range): BP systolic 98–121; BP diastolic 52–59; PULSE 71–126; RESP 17–19; TEMP 36–37.3; O2SAT 83–97
--- NOTE | 2022-08-07 | ECG_ITS ---
Test Reason : hypoxia Blood Pressure : / mmHG Vent. Rate : 079 BPM Atrial Rate : 079 BPM P-R Int : 180 ms QRS Dur : 090 ms QT Int : 380 ms P-R-T Axes : 081 069 006 degrees QTc Int : 435 ms Normal sinus rhythm Nonspecific T wave abnormality Abnormal ECG When compared with ECG of 28-JUL-2022 13:17, Nonspecific T wave abnormality now evident in Inferior leads Referred By: Thomas Baker Electronically Signed By:FARIHA CASIANO MD
[2022-08-07] MEDS: 0.9 % Sodium Chloride Flush 3 ML SYRINGE IVFLUSH ×2 (00:54→20:04)
[2022-08-07] MEDS: Acetaminophen 325 MG TABLET 650 MG PO ×2 (04:00→14:54)
[2022-08-07 06:19] LABS: Basophils Absolute Auto 0.1 X10*3/uL (0.0-0.2); Basophils Percent Auto 0.4 % (0-2); Eosinophils Absolute Auto 0.1 X10*3/uL (0.0-0.4); Hematocrit 28.3 % (37.0-47.0); Hemoglobin 9.5 g/dl (12.0-16.0); Imm Gran Abs Auto 0.08 X10*3/uL (0.00-0.03); Imm Gran Pct Auto 0.7 % (0.0-0.4); Lymphocytes Absolute Auto 1.1 X10*3/uL (1.2-4.9); Lymphocytes Percent Auto 9.4 % (20-40); MANUAL DIFF FLAG SCAN; Mean Corpuscular HGB Conc 33.6 g/dl (31.0-35.0); Mean Corpuscular Hemoglobin 28.6 pg (27.0-33.0); Mean Corpuscular Volume 85.2 fL (80.0-98.0); Monocytes Absolute Auto 1.6 X10*3/uL (0.1-1.2); Monocytes Percent Auto 13.7 % (2-11); Neutrophils Absolute Auto 8.5 x10*3/uL (2.0-8.3); Neutrophils Percent Auto 74.8 % (45-73); Platelet Count 160 X10*3/uL (160-400); Red Blood Count 3.32 X10*6/uL (4.20-5.50); SCAN SMEAR FLAG 1; White Blood Count 11.4 X10*3/uL (4.8-10.8)
[2022-08-07 06:39] LABS: SLIDE REVIEW VERIFIED
[2022-08-07 06:40] LABS: Anion Gap 13 (12-20); Blood Urea Nitrogen 10 mg/dL (9-16); Calcium 8.3 mg/dL (8.4-10.2); Carbon Dioxide 28 mmol/L (22-29); Chloride 98 mmol/L (96-108); Creatinine Clr Calc Pharmacy 75.7; Estimated Glomerular Filt Rate > 60; Glucose Fasting 145 mg/dL (60-99); Potassium 3.5 mmol/L (3.3-5.1); Sodium 135 mmol/L (135-145)
[2022-08-07] MEDS: Aspirin 325 MG TABLET PO ×2 (07:45→20:04)
[2022-08-07] MEDS: Docusate Sodium 100 MG CAPSULE PO ×2 (07:45→20:04)
[2022-08-07] MEDS: Celecoxib 200 MG CAPSULE PO ×2 (07:45→20:04)
[2022-08-07] MEDS: oxyCODONE HCl ER 10 MG TAB.ER.12H PO ×2 (07:45→20:02)
[2022-08-07] MEDS: oxyBUTYnin chloride ER 5 MG TAB.ER.24 15 MG PO (07:45)
--- NOTE | 2022-08-07 09:13 | HO.PM.IMPN ---
Subjective Subjective Date of Service: 08/07/22 Interval History: no sob despite hypoxia Physical Exam Vital Signs: Vital Signs: Last Vital Signs Temp 96.8 F 08/07/22 06:52 Pulse 113 H 08/07/22 08:38 Resp 19 08/07/22 06:52 BP 98/55 L 08/07/22 06:52 Pulse Ox 91 L 08/07/22 08:38 O2 Del Method Nasal Cannula 08/07/22 06:52 O2 Flow Rate 2 08/07/22 06:52 BMI result Body Mass Index 32.4 lungs with decent air movement, some crackles at bilateral bases R>L, mild rhonchi, no acute distress, Objective Data Active Medications Acetaminophen (Acetaminophen 325 Mg Tablet) 650 mg PO Q6H PRN PRN Reason: Pain, Mild (Pain Scale 1-3) Last Admin: 08/07/22 04:00 Dose: 650 mg Documented By: SHANTEL Albuterol Sulfate (Albuterol Sulfate 90 Mcg 8 Gm Inhaler) 2 puff INHALE QID PRN PRN Reason: Shortness Of Breath Or Wheezing Aspirin (Aspirin 325 Mg Tablet) 325 mg PO BID [facility] Last Admin: 08/07/22 07:45 Dose: 325 mg Documented By: BENI Atorvastatin Calcium (Atorvastatin Calcium 80 Mg Tablet) 80 mg PO DAILY@1200 [facility] Last Admin: 08/06/22 13:27 Dose: 80 mg Documented By: RENÉ Celecoxib (Celecoxib 200 Mg Capsule) 200 mg PO BID [facility] Last Admin: 08/07/22 07:45 Dose: 200 mg Documented By: BENI Diphenhydramine HCl (Diphenhydramine Hcl 25 Mg Capsule) 25 mg PO TID PRN PRN Reason: Allergy Symptoms Docusate Sodium (Docusate Sodium 100 Mg Capsule) 100 mg PO BID [facility] Last Admin: 08/07/22 07:45 Dose: 100 mg Documented By: BENI Fentanyl (Fentanyl Citrate/Pf 100 Mcg/2 Ml Vial) 25 mcg IVPUSH Q15M PRN; Protocol PRN Reason: Pain, Moderate (Pain Scale 4-6 Last Admin: 08/05/22 13:33 Dose: 25 mcg Documented By: GUEVARA Fluticasone Propionate (Fluticasone Propionate Nasal 16 Gm Harper) 2 spray NOSTRIL-B BEDTIME [facility] Last Admin: 08/06/22 19:36 Dose: 2 spray Documented By: JAMAAL Hydrochlorothiazide (Hydrochlorothiazide 12.5 Mg Tablet) 12.5 mg PO DAILY [facility]; Protocol Last Admin: 08/07/22 07:49 Dose: Not Given Documented By: BENI Non-Admin Reason: low bp Hydromorphone HCl (Hydromorphone Hcl 0.5 Mg/0.5 Ml Syringe) 0.25 mg IVPUSH Q4H PRN; Protocol PRN Reason: Pain, Severe (Pain Scale 7-10) Last Admin: 08/06/22 13:28 Dose: 0.25 mg Documented By: RENÉ Loratadine (Loratadine 10 Mg Tablet) 10 mg PO DAILY@1200 [facility] Last Admin: 08/06/22 13:27 Dose: 10 mg Documented By: RENÉ Melatonin (Melatonin 3 Mg Tablet) 1.5 mg PO BEDTIME [facility] Last Admin: 08/06/22 19:34 Dose: 1.5 mg Documented By: JAMAAL Multivitamins/Vitamin C (Multivitamin Tablet) 1 tab PO BEDTIME [facility] Last Admin: 08/06/22 19:36 Dose: 1 tab Documented By: JAMAAL Non-Formulary Medication (Cyclosporine [Restasis]) 1 drop EYE-BOTH Q12H [facility] Non-Formulary Medication (Olopatadine [Pataday Once Daily Relief]) 1 drop EYE-BOTH DAILY [facility] Omeprazole (Omeprazole 20 Mg Capsule.Dr) 20 mg PO DAILY@1200 [facility] Last Admin: 08/06/22 13:27 Dose: 20 mg Documented By: RENÉ Ondansetron HCl (Ondansetron Hcl 4 Mg/2 Ml Vial) 4 mg IVPUSH Q8H PRN PRN Reason: Nausea and Vomiting Oxybutynin Chloride (Oxybutynin Chloride Er 5 Mg Tab.Er.24) 15 mg PO DAILY [facility] Last Admin: 08/07/22 07:45 Dose: 15 mg Documented By: BENI Oxycodone HCl (Oxycodone Hcl Immed Release 5 Mg Tablet) 5 mg PO Q4H PRN PRN Reason: Pain, Moderate (Pain Scale 4-6 Last Admin: 08/06/22 15:54 Dose: 5 mg Documented By: JAMAAL Oxycodone HCl (Oxycodone Hcl Er 10 Mg Tab.Er.12h) 10 mg PO BID [facility] Last Admin: 08/07/22 07:45 Dose: 10 mg Documented By: BENI Sertraline HCl (Sertraline Hcl 100 Mg Tablet) 100 mg PO DAILY@1200 [facility] Last Admin: 08/06/22 13:27 Dose: 100 mg Documented By: RENÉ Sodium Chloride (0.9 % Sodium Chloride Flush 3 Ml Syringe) 3 ml IVFLUSH QSHIFT [facility] Last Admin: 08/07/22 07:17 Dose: Not Given Documented By: BENI Non-Admin Reason: See Note Labs 08/07/22 05:28 08/07/22 05:28 Labs: Laboratory Results - last 24 hr 08/07/22 08/07/22 05:28 05:28 MCV 85.2 MCH 28.6 MCHC 33.6 RDW 13.0 Plt Count 160 MPV 11.0 Immature Gran % (Auto) 0.7 H Neut % (Auto) 74.8 H Lymph % (Auto) 9.4 L Pitt % (Auto) 13.7 H Eos % (Auto) 1.0 Baso % (Auto) 0.4 Lymph # (Auto) 1.1 L [place] # (Auto) 1.6 H Eos # (Auto) 0.1 Baso # (Auto) 0.1 Abs Immat Gran (auto) 0.08 H Absolute Neuts (auto) 8.5 H Absolute Nucleated RBC 0.000 Nucleated RBC % (auto) 0.0 Smear Tech's Comments VERIFIED Anion Gap 13 Estim Creat Clear Calc 75.7 Estimated GFR > 60 Fasting Glucose 145 H Calcium 8.3 L Assessment and Plan (1) Status post total right knee replacement: Status: Acute Plan 72F PMH mild intermittent asthma, HTN, hld, gerd, admitted for right total knee arthroplasty, now with asymptomatic acute hypoxia acute hypoxic respiratory failure asymptomatic check cxr, ekg nebs prn, incentive spirometry monitor Right total knee arthroplasty Management as per surgical team Pain management mild intermittent Asthma Albuterol as needed Hypertension hctz Overactive bladder Continue oxybutynin Hyperlipidemia Statin GERD Continue PPI DVT prophylaxis with full-dose aspirin full code Time Spent With Patient Time: Total time managing care of this patient today ____ minutes. Quality Stroke Does the patient have a stroke diagnosis?: No VTE Prior VTE?: No VTE Risk Level:: Medical - moderate - high VTE Device Contraindication: N/A - Device Ordered VTE Drug Contraindication: N/A - Med Ordered
[2022-08-07] MEDS: Atorvastatin Calcium 80 MG TABLET PO (11:18)
[2022-08-07] MEDS: Loratadine 10 MG TABLET PO (11:18)
[2022-08-07] MEDS: Sertraline HCL 100 MG TABLET PO (11:18)
[2022-08-07] MEDS: Omeprazole 20 MG CAPSULE.DR PO (11:18)
[2022-08-07 11:20] LABS: Glucose, Whole Blood 233 mg/dL (60-115)
[2022-08-07] MEDS: Magnesium Hydrox/Alum Hydrox 30 ML ORAL.SUSP 15 ML PO (12:47)
[2022-08-07] MEDS: oxyCODONE HCl Immed Release 5 MG TABLET PO (14:57)
--- NOTE | 2022-08-07 15:09 | P.OP_ITS ---
Operative Note Operative Note Date of Service: 08/05/22 Narrative: Date of Service: 08/05/22 Pre-op diagnosis: Right knee OA Post-op diagnosis: same Procedure: Right TKA Implants: [place] press fit cruciate retaining 06/28/11 Surgeon: Ozzie Cardoza MD Anesthesia: regional and spinal Was an Billing Department Supervisor used for this Procedure?: Yes Billing Department Supervisor: Santos Snyder Estimated blood loss (mL): 250 IV fluids (mL): 1,000 Pathology: other Condition: stable Disposition: PACU Procedure in detail: The patient was brought to the operating room and prepped and draped in standard sterile fashion. A time-out was called to identify proper site proper procedure proper surgeon and IV antibiotics were administered. 1 g of IV tranexamic acid was administered. I began by making a midline incision to the retinaculum and performed a medial parapatellar arthrotomy. The patella was translated lateral ly and the knee was flexed up. there was complete eburnation of the medial compartment . I performed a small medial peel and resected the infrapatellar fat pad. Yasmeen's line was then used to drill my intramedullary femoral guide and my distal femur cut of 10 mm was made in 5 degrees of valgus while protecting the soft tissues. I then measured a # 3 femur and placed my cutting guide and made my anterior posterior and chamfer cuts protecting the soft tissues at all times. Once I was satisfied with my cuts I turned my attention to the tibia. I removed the meniscus medially and laterally and , using an external cutting guide, in line with the tibial crest and the third ray, I made my distal tibial cut in 3 deg slope of while protecting the PCL the posterior soft tissues at all times. An extension block was used to confirm appropriate amount of bony resection. I then sized a #3 tibia and once I was satisfied that there was complete tibial coverage I placed my trial and with the trial femur in place took the knee through range of motion. I was satisfied with the extension and flexion as well as the stability and balance at 0, 30 and 90 degrees. I then turned my attention to the patella where I removed 1 cm from the undersurface of the patella and then trialed a 29a patellar button. Again the knee was taken through range of motion I was satisfied with the tracking. I th en returned to the femur and drilled my femoral lug holes and prepared the tibia. A femoral bone plug was placed and the knee was irrigated copiously. I then press fit the patella, tibia and femur in standard fashion. I trialed different inserts until I selected a #12 insert. The final insert was placed and a 3 minutes iodine soak with local TXA was performed. A Werewolf cautery wand was used to maintain hemostasis over the capsule and meniscal beds, the gutters and peripatellar soft tissues. The knee was then closed with a running Quill suture, a 3 0 Vicryl and candi on the skin. Patient was then placed in sterile dressing and brought to recovery room in stable condition there were no known complications.
[2022-08-07] MEDS: Melatonin 3 MG TABLET 1.5 MG PO (20:03)
[2022-08-07] MEDS: Multivitamin TABLET 1 TAB PO (20:04)
[2022-08-07] MEDS: Fluticasone Propionate Nasal 16 GM SPRAY 2 SPRAY NOSTRIL-B (20:22)
[2022-08-08 03:51] VITALS: BP 112/59; PULSE 66; RESP 16; TEMP 36.1; O2SAT 97
[2022-08-08] MEDS: Acetaminophen 325 MG TABLET 650 MG PO ×2 (04:39→15:38)
[2022-08-08] MEDS: oxyCODONE HCl Immed Release 5 MG TABLET PO ×2 (04:39→13:56)
[2022-08-08 06:03] LABS: MANUAL DIFF FLAG NO
--- NOTE | 2022-08-08 06:04 | P.PNOP_ITS ---
Subjective Subjective Date of Service: 08/07/22 Interval history: POD 2 s/p RT TKA no overnight events patient appears to be hypoxic when O2 is measured, but denies sob, cp, palpitations Physical Exam Vital Signs: Vital Signs: Last Vital Signs Temp 97.0 F 08/08/22 03:51 Pulse 66 08/08/22 03:51 Resp 16 08/08/22 03:51 BP 112/59 L 08/08/22 03:51 Pulse Ox 97 08/08/22 03:51 O2 Del Method Nasal Cannula 08/08/22 03:51 O2 Flow Rate 2 08/08/22 03:51 BMI result Body Mass Index 32.4 Const: General: cooperative, healthy appearing and no acute distress Resp: Effort & Inspection: normal respiratory effort and able to speak in complete sentences Cardio: Rate: regular rate Peripheral pulses: Peripheral pulses 2+ throughout GI: Palpation (GI): Soft to palpation Skin: Lesions: no lesions Rashes: no rashes Extrem: Other: Right knee Aquacel is clean dry and intact. Able to dorsiflex and plantar flex. NVI. Procedures Date of Service Date of Service: 08/07/22 Progress Note: A&P Assessment and plan (1) Status post total right knee replacement: Status: Acute Assessment and Plan: * Continue pain mgmnt * continue Aspirin for dvt ppx * continue PT for RT TKA * Home O2 eval * Dispo planning-Pending home O2 eval Time Spent With Patient Time: Total time managing care of this patient today ____ minutes. Quality Stroke Does the patient have a stroke diagnosis?: No VTE Prior VTE?: No VTE Risk Level:: Medical - moderate - high VTE Device Contraindication: N/A - Device Ordered VTE Drug Contraindication: N/A - Med Ordered
--- NOTE | 2022-08-08 06:07 | P.DS_ITS ---
DS: Providers Provider Date of Service: 08/08/22 Date of admission: 08/05/22 07:45 Primary care physician: Ro Armstrong MD Consults: 08/05/22 13:50 Consult to Hospitalist Routine Comment: Consulting Provider: Hospitalist Reason For Exam: post op med mgmnt . htn DS: Diagnosis Discharge Diagnosis (1) Status post total right knee replacement: Status: Acute DS: Summary Hospital Course Hospital Course: The patient underwent a successful right total knee arthroplasty on 08/05/22, was transferred to PACU and then to the floor to recover. During their stay, their vitals were stable, afebrile at 96.9. Labs were unremarkable, H/H 9.2,27.7 . POD 1 he was started on Aspirin 325mg tabs po bid for DVT ppx, they also received Physical Therapy services twice a day. POD 2 she developed hypoxia while ambulating with PT. Oxygen level would drop to the 80's. CXR, CTA and ECG were negative for any acute abnormalities. Home O2 eval was performed which in conclusion stated she did not require home O2; however, unclear if she was ambulating during this evaluation. POD 3 her Oxygen saturation continued to drop below 90 with ambulation. Another Home O2 eval was performed. * 1st titration resting on Room air, HR 68, SpO2% 93 * 2nd titration ambulating 15ft on room air, HR 81, SpO2% 86 * 3rd titration ambulating 10ft w/ 1L Oxygen, HR 82, SpO2% 88 * 4th titration ambulating 10ft w/ 2L Oxygen, HR 80, SpO2% 94 Recommendation: Patient qualifies for home oxygen 2L with ambulation only -outpatient pulmonology referral placed Physical therapy should include gait training, ROM to tolerance and quad strength.She is WBAT. Prior to discharge, his dressing was changed, incision clean dry and intact, new Aquacel dressing applied. The Aquacel dressing shoulder remain intact and dry at all times. Any concerns with the dressing, please contact orthopedic office. No showering. The plan is to be discharged home with VNA services Time Spent with Patient Time attestation: Total time managing care of this patient today ____ minutes. Discharge coordination time: Less than 30 minutes Quality: Safe Use of Opioids Does Pt have an Active Cancer Diagnosis on the Problem List?: No Quality: Stroke Does the patient have a stroke diagnosis?: No Physical Exam Vital Signs: Vital Signs: Last Vital Signs Temp 97.0 F 08/08/22 03:51 Pulse 66 08/08/22 03:51 Resp 16 08/08/22 03:51 BP 112/59 L 08/08/22 03:51 Pulse Ox 97 08/08/22 03:51 O2 Del Method Nasal Cannula 08/08/22 03:51 O2 Flow Rate 2 08/08/22 03:51 BMI result Body Mass Index 32.4 Const: General: cooperative, healthy appearing and no acute distress Resp: Effort & Inspection: normal respiratory effort and able to speak in complete sentences Cardio: Rate: regular rate Peripheral pulses: Peripheral pulses 2+ throughout GI: Palpation (GI): Soft to palpation Skin: Lesions: no lesions Rashes: no rashes Extrem: Other: Right knee Aquacel is clean dry and intact. Able to dorsiflex and plantar flex. NVI. DS: Data Data Completed and Pending Pending studies at discharge: Pending at discharge 08/05/22 10:44 Surgical [PTH] Routine Labs on day of discharge: Laboratory Results - last 24 hr 08/07/22 08/07/22 08/07/22 05:28 05:28 11:16 WBC 11.4 H RBC 3.32 L Hgb 9.5 L Hct 28.3 L MCV 85.2 MCH 28.6 MCHC 33.6 RDW 13.0 Plt Count 160 MPV 11.0 Immature Gran % (Auto) 0.7 H Neut % (Auto) 74.8 H Lymph % (Auto) 9.4 L [place] % (Auto) 13.7 H Eos % (Auto) 1.0 Baso % (Auto) 0.4 Lymph # (Auto) 1.1 L [place] # (Auto) 1.6 H Eos # (Auto) 0.1 Baso # (Auto) 0.1 Abs Immat Gran (auto) 0.08 H Absolute Neuts (auto) 8.5 H Absolute Nucleated RBC 0.000 Nucleated RBC % (auto) 0.0 Smear Tech's Comments VERIFIED Sodium 135 Potassium 3.5 Chloride 98 Carbon Dioxide 28 Anion Gap 13 BUN 10 Creatinine 0.65 Estim Creat Clear Calc 75.7 Estimated GFR > 60 POC Glucose 233 H Fasting Glucose 145 H Calcium 8.3 L Discharge Plan Discharge Anticipated Discharge Date/Time: 08/08/22 10:00 Patient Disposition: Home Health Service Discharge Diagnosis: RT TKA Referrals: Liat FRANCISCO [Outside] - 1 Week (HOME WITH HOME HEALTH SERVICES-THERAPIST WILL CONTACT YOU TO SET UP FIRST VISIT) Sydnee Quinn PA-C [Physician Instrumentation Engineering Technician] - 2 Weeks (08/21/22 1:15 [facility] Orthopedic Surgeons Sydnee Quinn PA-C) Yoandy Carpenter MD [Physician] - 1 Week (hypoxia) Discharge Medications: New celecoxib 200 mg Capsule 200 mg PO BID 30 Days Qty: 60 0RF acetaminophen 325 mg Tablet 650 mg PO Q6H PRN (Reason: Pain, Mild (Pain Scale 1-3)) 30 Days Qty: 240 0RF aspirin 325 mg Tablet 325 mg PO BID 42 Days Qty: 84 0RF docusate sodium 100 mg Capsule 100 mg PO BID 14 Days Qty: 28 0RF oxycodone 5 mg Tablet 5 mg PO Q4H PRN (Reason: Pain, Moderate (Pain Scale 4-6) 7 Days Qty: 42 0RF Rx Instructions: Partial Fill upon patient request. Continued triamcinolone acetonide [Nasacort] 55 mcg Aerosol,[place] 1 spray INTRANASAL BEDTIME Rx Instructions: administer into each nostril multivitamin 1 tab PO BEDTIME cyclosporine [Restasis] 0.05 % [place] 1 drp OPHTHALMIC (EYE) Q12H melatonin 1 mg PO BEDTIME diphenhydramine HCl [[place] Plus Allergy] 25 mg Tablet 25 mg PO TID PRN (Reason: Allergy Symptoms) olopatadine [Pataday Once Daily Relief] 0.2 % Drops 1 drp OPHTHALMIC (EYE) DAILY omeprazole 20 mg capsule,delayed release(DR/EC) 20 mg PO DAILY@1200 loratadine [Claritin] 10 mg tablet 10 mg PO .DAILY@NOON albuterol sulfate 90 mcg/actuation HFA aerosol inhaler 2 puff inhalation QID PRN (Reason: Shortness Of Breath Or Wheezing) sertraline 100 mg tablet 100 mg PO .DAILY@NOON rosuvastatin 40 mg tablet 40 mg PO DAILY@1200 hydrochlorothiazide 12.5 mg capsule 12.5 mg PO DAILY oxybutynin chloride 15 mg tablet extended release 24hr 15 mg PO DAILY Discharge Orders: Discharge Order (Routine); Ordered 08/08/22 Ordered By: Santos Snyder Diet: Regular diet Activity on Discharge: Use cane or walker Stand Alone Forms: Patient Portal Discharge page Care Plan Goals: Restore function of joint Health Concerns: none Plan of Treatment: Physical Therapy Pain management DVT prophylaxis Assessment: Physical Therapy for Total knee arthroplasty: WBAT, gait training, ROM 0-12, quad strength * Limit stair climbing * No showering, no tub bath-keep dressing clean, dry and intact * No driving x6 weeks * Continue Aspirin twice a day x 6 weeks * Follow up with [facility] Orthopedics in 2 weeks: 08/21/22 13:15 Orthopedic SurgeonsSydnee Quinn PA-C * --you will also have your first out patient PT eval on the day of your post op appt-so please plan on being in the office that day for an extended period of time.
[2022-08-08 06:08] LABS: Basophils Absolute Auto 0.1 X10*3/uL (0.0-0.2); Basophils Percent Auto 0.5 % (0-2); Eosinophils Absolute Auto 0.2 X10*3/uL (0.0-0.4); Eosinophils Percent Auto 2.2 % (0-4); Hematocrit 27.7 % (37.0-47.0); Hemoglobin 9.2 g/dl (12.0-16.0); Imm Gran Abs Auto 0.09 X10*3/uL (0.00-0.03); Imm Gran Pct Auto 0.8 % (0.0-0.4); Lymphocytes Absolute Auto 1.1 X10*3/uL (1.2-4.9); Lymphocytes Percent Auto 10.5 % (20-40); Mean Corpuscular HGB Conc 33.2 g/dl (31.0-35.0); Mean Corpuscular Hemoglobin 28.2 pg (27.0-33.0); Mean Platelet Volume 10.8 fL (9.4-12.3); Monocytes Absolute Auto 1.2 X10*3/uL (0.1-1.2); Monocytes Percent Auto 11.6 % (2-11); Neutrophils Absolute Auto 7.9 x10*3/uL (2.0-8.3); Neutrophils Percent Auto 74.4 % (45-73); Platelet Count 174 X10*3/uL (160-400); Red Blood Count 3.26 X10*6/uL (4.20-5.50); Red Cell Distribution Width 12.9 % (11.0-16.0); White Blood Count 10.7 X10*3/uL (4.8-10.8)
--- NOTE | 2022-08-08 06:09 | PC.NURSE ---
Pt was assisted to the BR and desats to low 80s in room air as she ambulates, recovered malachi kto low 90s with O2 placed.
[2022-08-08 06:24] LABS: Anion Gap 9 (12-20); Blood Urea Nitrogen 11 mg/dL (9-16); Carbon Dioxide 30 mmol/L (22-29); Chloride 100 mmol/L (96-108); Creatinine Clr Calc Pharmacy 64.7; Estimated Glomerular Filt Rate > 60; Glucose Fasting 142 mg/dL (60-99); Potassium 3.4 mmol/L (3.3-5.1); Sodium 136 mmol/L (135-145)
[2022-08-08 06:29] LABS: B Type Natriuretic Peptide 65 pg/mL (<100)
[2022-08-08] MEDS: oxyBUTYnin chloride ER 5 MG TAB.ER.24 15 MG PO (07:24)
[2022-08-08] MEDS: 0.9 % Sodium Chloride Flush 3 ML SYRINGE IVFLUSH (07:24)
[2022-08-08] MEDS: hydroCHLOROthiazide 12.5 MG TABLET PO (07:24)
[2022-08-08] MEDS: Celecoxib 200 MG CAPSULE PO (07:24)
[2022-08-08] MEDS: Docusate Sodium 100 MG CAPSULE PO (07:24)
[2022-08-08] MEDS: Aspirin 325 MG TABLET PO (07:25)
[2022-08-08] MEDS: oxyCODONE HCl ER 10 MG TAB.ER.12H PO (07:25)
[2022-08-08 07:47] VITALS: BP 114/56; PULSE 65; RESP 18; TEMP 36.1; O2SAT 96
[2022-08-08 08:58] VITALS: BP 114/56; PULSE 65; O2SAT 96
--- NOTE | 2022-08-08 09:15 | P.PNIM_ITS ---
Subjective Subjective Date of Service: 08/08/22 Interval History: no symptoms, did not qulaify for oxygen 08/07/22, but at time of discharge was desatting to low 80s on room air Physical Exam Vital Signs: Vital Signs: Last Vital Signs Temp 96.9 F 08/08/22 07:47 Pulse 65 08/08/22 08:58 Resp 18 08/08/22 07:47 BP 114/56 L 08/08/22 08:58 Pulse Ox 96 08/08/22 08:58 O2 Del Method Nasal Cannula 08/08/22 07:47 O2 Flow Rate 2 08/08/22 07:47 BMI result Body Mass Index 32.4 lungs clear, no distress Objective Data Active Medications Acetaminophen (Acetaminophen 325 Mg Tablet) 650 mg PO Q6H PRN PRN Reason: Pain, Mild (Pain Scale 1-3) Last Admin: 08/08/22 04:39 Dose: 650 mg Documented By: CASTMARCELA Albuterol Sulfate (Albuterol Sulfate 90 Mcg 8 Gm Inhaler) 2 puff INHALE QID PRN PRN Reason: Shortness Of Breath Or Wheezing Aspirin (Aspirin 325 Mg Tablet) 325 mg PO BID [facility] Last Admin: 08/08/22 07:25 Dose: 325 mg Documented By: ANTONIETTA Atorvastatin Calcium (Atorvastatin Calcium 80 Mg Tablet) 80 mg PO DAILY@1200 [facility] Last Admin: 08/07/22 11:18 Dose: 80 mg Documented By: RICHI-OLIVIA Celecoxib (Celecoxib 200 Mg Capsule) 200 mg PO BID [facility] Last Admin: 08/08/22 07:24 Dose: 200 mg Documented By: ANTONIETTA Diphenhydramine HCl (Diphenhydramine Hcl 25 Mg Capsule) 25 mg PO TID PRN PRN Reason: Allergy Symptoms Docusate Sodium (Docusate Sodium 100 Mg Capsule) 100 mg PO BID [facility] Last Admin: 08/08/22 07:24 Dose: 100 mg Documented By: ANTONIETTA Fentanyl (Fentanyl Citrate/Pf 100 Mcg/2 Ml Vial) 25 mcg IVPUSH Q15M PRN; Protocol PRN Reason: Pain, Moderate (Pain Scale 4-6 Last Admin: 08/05/22 13:33 Dose: 25 mcg Documented By: GUEVARA Fluticasone Propionate (Fluticasone Propionate Nasal 16 Gm [place]) 2 spray NOSTRIL-B BEDTIME [facility] Last Admin: 08/07/22 20:22 Dose: 2 spray Documented By: MARK Hydrochlorothiazide (Hydrochlorothiazide 12.5 Mg Tablet) 12.5 mg PO DAILY [facility]; Protocol Last Admin: 08/08/22 07:24 Dose: 12.5 mg Documented By: ANTONIETTA Hydromorphone HCl (Hydromorphone Hcl 0.5 Mg/0.5 Ml Syringe) 0.25 mg IVPUSH Q4H PRN; Protocol PRN Reason: Pain, Severe (Pain Scale 7-10) Last Admin: 08/06/22 13:28 Dose: 0.25 mg Documented By: RENÉ Loratadine (Loratadine 10 Mg Tablet) 10 mg PO DAILY@1200 [facility] Last Admin: 08/07/22 11:18 Dose: 10 mg Documented By: BENI Melatonin (Melatonin 3 Mg Tablet) 1.5 mg PO BEDTIME [facility] Last Admin: 08/07/22 20:03 Dose: 1.5 mg Documented By: MARK Multivitamins/Vitamin C (Multivitamin Tablet) 1 tab PO BEDTIME [facility] Last Admin: 08/07/22 20:04 Dose: 1 tab Documented By: MARK Non-Formulary Medication (Cyclosporine [Restasis]) 1 drop EYE-BOTH Q12H [facility] Non-Formulary Medication (Olopatadine [Pataday Once Daily Relief]) 1 drop EYE- BOTH DAILY [facility] Omeprazole (Omeprazole 20 Mg Capsule.Dr) 20 mg PO DAILY@1200 [facility]DR[facility] Last Admin: 08/07/22 11:18 Dose: 20 mg Documented By: BENI Ondansetron HCl (Ondansetron Hcl 4 Mg/2 Ml Vial) 4 mg IVPUSH Q8H PRN PRN Reason: Nausea and Vomiting Oxybutynin Chloride (Oxybutynin Chloride Er 5 Mg Tab.Er.24) 15 mg PO DAILY [facility] Last Admin: 08/08/22 07:24 Dose: 15 mg Documented By: ANTONIETTA Oxycodone HCl (Oxycodone Hcl Immed Release 5 Mg Tablet) 5 mg PO Q4H PRN PRN Reason: Pain, Moderate (Pain Scale 4-6 Last Admin: 08/08/22 04:39 Dose: 5 mg Documented By: MARK Oxycodone HCl (Oxycodone Hcl Er 10 Mg Tab.Er.12h) 10 mg PO BID [facility] Last Admin: 08/08/22 07:25 Dose: 10 mg Documented By: ANTONIETTA Sertraline HCl (Sertraline Hcl 100 Mg Tablet) 100 mg PO DAILY@1200 [facility] Last Admin: 08/07/22 11:18 Dose: 100 mg Documented By: RICHI-SOFFA Sodium Chloride (0.9 % Sodium Chloride Flush 3 Ml Syringe) 3 ml IVFLUSH QSHIFT [facility] Last Admin: 08/08/22 07:24 Dose: 3 ml Documented By: ANTONIETTA Labs 08/08/22 05:09 08/08/22 05:09 Labs: Laboratory Results - last 24 hr 08/07/22 08/08/22 08/08/22 11:16 05:09 05:09 MCV 85.0 MCH 28.2 MCHC 33.2 RDW 12.9 Plt Count 174 MPV 10.8 Immature Gran % (Auto) 0.8 H Neut % (Auto) 74.4 H Lymph % (Auto) 10.5 L [place] % (Auto) 11.6 H Eos % (Auto) 2.2 Baso % (Auto) 0.5 Lymph # (Auto) 1.1 L [place] # (Auto) 1.2 Eos # (Auto) 0.2 Baso # (Auto) 0.1 Abs Immat Gran (auto) 0.09 H Absolute Neuts (auto) 7.9 Absolute Nucleated RBC 0.000 Nucleated RBC % (auto) 0.0 Anion Gap 9 L Estim Creat Clear Calc 64.7 Estimated GFR > 60 POC Glucose 233 H Fasting Glucose 142 H Calcium 8.0 L B-Natriuretic Peptide 08/08/22 08/08/22 05:09 05:09 MCV Cancelled MCH Cancelled MCHC Cancelled RDW Cancelled Plt Count Cancelled MPV Cancelled Immature Gran % (Auto) Neut % (Auto) Lymph % (Auto) [place] % (Auto) Eos % (Auto) Baso % (Auto) Lymph # (Auto) [place] # (Auto) Eos # (Auto) Baso # (Auto) Abs Immat Gran (auto) Absolute Neuts (auto) Absolute Nucleated RBC Cancelled Nucleated RBC % (auto) Cancelled Anion Gap Estim Creat Clear Calc Estimated GFR POC Glucose Fasting Glucose Calcium B-Natriuretic Peptide 65 Assessment and Plan (1) Status post total right knee replacement: Status: Acute Plan 72F PMH mild intermittent asthma, HTN, hld, gerd, admitted for right total knee arthroplasty, now with asymptomatic acute hypoxia acute hypoxic respiratory failure asymptomatic cxr unremarkable, lungs clear ?chronic reeval for home o2 nebs prn, incentive spirometry Right total knee arthroplasty Management as per surgical team Pain management mild intermittent Asthma Albuterol as needed Hypertension hctz Overactive bladder Continue oxybutynin Hyperlipidemia Statin GERD Continue PPI DVT prophylaxis with full-dose aspirin full code Time Spent With Patient Time: Total time managing care of this patient today ____ minutes. Quality Stroke Does the patient have a stroke diagnosis?: No VTE Prior VTE?: No VTE Risk Level:: Medical - moderate - high VTE Device Contraindication: N/A - Device Ordered VTE Drug Contraindication: N/A - Med Ordered
[2022-08-08 10:54] VITALS: PULSE 68; PULSE 80; PULSE 81; PULSE 82; O2SAT 86; O2SAT 88; O2SAT 93; O2SAT 94
[2022-08-08] MEDS: Atorvastatin Calcium 80 MG TABLET PO (11:41)
[2022-08-08] MEDS: Sertraline HCL 100 MG TABLET PO (11:41)
[2022-08-08] MEDS: Omeprazole 20 MG CAPSULE.DR PO (11:41)
[2022-08-08] MEDS: Loratadine 10 MG TABLET PO (11:41)
--- NOTE | 2022-08-08 13:20 | MHC.CM.PN ---
Addendum entered by Yasmin Zhang 08/08/22 15:07: PT HAS BEEN MEDICALLY CLEARED FOR DC HOME WITH NEW [facility] FOR PT/OT SERVICES/ [facility] NOTIFIED. PER PT, SHE IS ARRANGING HER OWN RIDE HOME. Original Note: EMR REVIEWED AND PER MD ROUNDS, PT HAS HAD ANOTHER HOME 02 EV AND WILL NOW QUALIFY FOR 2L WITH [employer]. [email or web address] WILL BE THE VENDOR. [facility] UPDATED. CM WILL CONTINUE TO FOLLOW FOR DC NEEDS.
[2022-08-08] MEDS: iohexoL 350 MG/ML 100 ML INFUS..BTL IV (13:26)
--- NOTE | 2022-08-08 15:21 | W.MHC.F2F ---
Service Date Service Date: 08/08/22 Encounter Date of encounter: 08/08/22 Reasons for Services Signs and symptoms assessed: right knee pain , swelling, difficulty with ambualtion, hypoxia on ambulation and activity Reason for physical therapy: home safety and mobility, therapeutic exercises, restore joint function, gait/transfer training, ADL training and energy conservation Reason for occupational therapy: home safety and mobility, therapeutic exercises, restore joint function, gait/transfer training, ADL training and energy conservation MD Overseeing Care: Ozzie Cardoza Homebound: Leaving the home is medically contraindicated at this time without the asist of a device and/or another person due th the listed conditions above and below. Reason homebound: unsteady gait / fall risk, pain with ambulation, poor balance / fall risk and unable to drive Homebound supporting statement: Pt. is considered home bound due to recent surgery. Unable to drive, poor balance, poor gait mechanics. Certification: Based on the above findings, I certify that this patient is confined to the home and needs intermittent custodial care, physical therapy and/or speech therapy, or continues to need occupational therapy. The patient is under my care, and I have initiated the establishment of the plan of care. The patient will be followed by a physician who will periodically review the plan of care. Time Spent With Patient Time: Total time managing care of this patient today ____ minutes.
== END 2022-08-08 16:20 | disposition home health service (06) | DRG 469 ==
LOC: HO.SSSA 07:56 → HO.S3 13:05
PROVIDERS: Internal Medicine; Absent Provider Physician Assistant; Admitting Provider Physician Assistant; PCP Internal Medicine; Visit Provider Orthopaedic Surgery
PROC: 0SRC0JA Replacement of Right Knee Joint with Synthetic Substitute, Uncemented, Open Approach (ICD-10-PCS; CPT 27447; principal; 2022-08-05 09:40)
DX: M17.11 Unilateral primary osteoarthritis, right knee (principal); J96.21 Acute and chronic respiratory failure with hypoxia; J45.20 Mild intermittent asthma, uncomplicated; K21.9 Gastro-esophageal reflux disease without esophagitis; N32.81 Overactive bladder; G89.18 Other acute postprocedural pain; E78.00 Pure hypercholesterolemia, unspecified; Z20.822 Contact with and (suspected) exposure to COVID-19; Z79.82 Long term (current) use of aspirin; Z79.899 Other long term (current) drug therapy
CPT/HCPCS: 27447; 36415; 71045; 71275; 73560; 80048; 82947; 83880; 85014; 85018; 85025; 86850; 86900; 86901; 87635; 87640; 87641; 88305; 88311; 93005; 94640; 97110; 97116; 97161; C1776; J0690; J1170; J2795; J3010; Q9967

== ENCOUNTER → 2022-08-21 13:44 | Outpatient (BNVA) | payer MEDICARE, SELFPAY | PROVIDERS: PCP Internal Medicine; Visit Provider Physician Assistant | DX: M17.11 Unilateral primary osteoarthritis, right knee (principal); Z96.651 Presence of right artificial knee joint | CPT/HCPCS: 99212 ==

== ENCOUNTER 2022-09-18 10:58 | Outpatient (REF) | payer MEDICARE, SELFPAY ==
--- NOTE | ~2022-09-18 | XR_ITS ---
EXAMINATION: Knee x-ray CLINICAL INFORMATION: Pain COMPARISON: Previous x-ray most recent July 2022 TECHNIQUE: Standing AP view of both knees and lateral and sunrise view of the right knee FINDINGS: Right knee: There is a 3 component knee replacement in satisfactory position. No fracture or dislocation. Small to moderate joint effusion. Mild soft tissue swelling anterior to the knee. 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 There is well-corticated ossification adjacent to the superior lateral patella similar to previous exam questionable for old trauma XR/XR knee standing BI IMPRESSION: Right: Satisfactory appearance of right knee replacement. Small to moderate joint effusion and anterior soft tissue swelling. Stable appearance of the left knee
--- NOTE | ~2022-09-18 | XR_ITS ---
EXAMINATION: Knee x-ray CLINICAL INFORMATION: Pain COMPARISON: Previous x-ray most recent July 2022 TECHNIQUE: Standing AP view of both knees and lateral and sunrise view of the right knee FINDINGS: Right knee: There is a 3 component knee replacement in satisfactory position. No fracture or dislocation. Small to moderate joint effusion. Mild soft tissue swelling anterior to the knee. 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 There is well-corticated ossification adjacent to the superior lateral patella similar to previous exam questionable for old trauma XR/XR knee RT 2V IMPRESSION: Right: Satisfactory appearance of right knee replacement. Small to moderate joint effusion and anterior soft tissue swelling. Stable appearance of the left knee
== END 2022-09-18 10:59 | disposition home or self-care (01) ==
LOC: HO.HOSX 10:58
PROVIDERS: PCP Internal Medicine; Visit Provider Physician Assistant
DX: M25.561 Pain in right knee (principal); Z47.1 Aftercare following joint replacement surgery; Z96.651 Presence of right artificial knee joint
CPT/HCPCS: 73560; 73565; 99212

== ENCOUNTER 2022-10-03 11:19 | Outpatient (REF) | payer MEDICARE, OTHER, SELFPAY ==
[2022-10-03 12:15] LABS: Estimated Average Glucose 117 mg/dL; Hemoglobin A1c % 5.7 %
[2022-10-03 12:39] LABS: Alanine Aminotransferase 14 U/L (0-31); Albumin Level 4.3 g/dL (3.5-5.0); Alkaline Phosphatase 110 U/L (39-117); Anion Gap 13 (12-20); Aspartate Amino Transferase 20 U/L (5-31); Bilirubin Total 0.5 mg/dL (0.0-1.0); Blood Urea Nitrogen 18 mg/dL (9-16); Calcium 10.1 mg/dL (8.4-10.2); Carbon Dioxide 28 mmol/L (22-29); Chloride 100 mmol/L (96-108); Estimated Glomerular Filt Rate > 60; Glucose Random 113 mg/dL (60-115); Sodium 137 mmol/L (135-145); Total Protein 7.7 g/dL (6.5-8.0)
== END 2022-10-03 11:20 | disposition home or self-care (01) ==
LOC: HO.LAB 11:19
PROVIDERS: PCP Internal Medicine; Visit Provider Internal Medicine
DX: B37.2 Candidiasis of skin and nail (principal); E78.00 Pure hypercholesterolemia, unspecified; I10 Essential (primary) hypertension; R73.01 Impaired fasting glucose
CPT/HCPCS: 36415; 80053; 83036

== ENCOUNTER 2022-10-08 15:00 | Outpatient (RCR) | payer MEDICARE, OTHER, SELFPAY ==
--- NOTE | 2022-08-21 14:34 | MHC.PT.EP ---
[facility] [place] Office [place] Office [place] Office [address] Danny Winston [address] [phone] F: [phone] F: [phone] F: [phone] F: [phone] Physical Therapy Plan of Care Date of Evaluation: Date of Surgery: 08/05/22 Diagnosis: S/P Rt TKA Assessment: 72 YO FEMALE REF TO PT S/P Rt TKA ON 08/05/22. 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 OBJECTIVE FINDINGS: LIMITED AROM Rt KNEE, TIGHT PSOAS MM RHYS AND DECR ANKLE DF RHYS; DECR STRENGTH IN PROX / LUMBOPELVIC AND Rt LE, POST-OP PAIN IN RIGHT KNEE ,AND HEALING ANT Rt KNEE INCISION W ANTEROLAT BRUISING. FUNCTIONALLY, Pt IS AMB W A W/WALKER- SHE HAS COMPENSATORY GAIT, MODIFIED STAIR MGMT, DECR STANDING, AND DECR SASKIA TO ADLs REQ Rt KNEE FLEX. Pt IS A VERY GOOD PT CANDIDATE TO GUIDE HER IN HER POST-OP TKR COURSE, ADDRESSING THE ABOVE FINDINGS, PAIN MGMT, AND MAXIMIZING FUNCTIONAL INDEPENDENCE. Frequency and Duration: The patient will be seen 2x WK x 10 WKS Short Term Goals: *Pt'S RIGHT KNEE PAIN DECR TO 2-3/10 *Pt INCREASE Rt KNEE ROM -> 0* EXTEN AND PROGRESSIVELY TO 120* FLEX *INCR FLEXIB IN PSOAS/ CALF MM TO IMPROVE EFFICIENCY OF GAIT ON LEVEL AND STAIRS *REDUCE Rt LE EDEMA AND MONITOR/ ADDRESS SCAR MOB NEEDED [facility]ci Goals: Pt INDEP W HEP PROGRESSION AND SELF-SX MGMT STRATEGIES IN 10 WKS Pt RESUME REG ADLs EVIDENT W IMPROVED LEFI SCORE BY 8-10 POINTS (AT EVAL ) IN 10 WKS Pt INCR LE STRENGTH BY 1 GRADE IN 10 WKS Treatment Plan: Modalities to reduce pain, spasms and effusion. Manual therapy to restore motion and function. Therapeutic exercise to improve strength and flexibility. Neuromuscular re-education for posture and balance. Therapeutic activities to return to functional activities of daily living. Electronically signed by: ANABELLA JUS,PT Please sign and return to therapist. Thank you for your referral.
--- NOTE | 2022-10-08 16:59 | MHC.PT.DC ---
[facility] [place] Office [place] Office [place] Office [address] Danny Winston [address] [phone] F: [phone] F: [phone] F: [phone] F: [phone] Physical Therapy Discharge Report Diagnosis: S/P RIGHT TKA Date of Surgery: 08/05/22 Date of Evaluation: 08/21/22 Date of Discharge: 10/08/22 Treatments to Date: 11 Cancellations to Date: 0 No Shows to Date: 0 Discharge Status: Achieved Goals Improved Function Independent with HEP Discharge Summary: Patient feels ready for discharge. She had an independent HEP. She presents with full AROM and strength of knee, just some weakness in hip, encouraged STM to scar at home and continued HEP to maintain gains made in PT and improve endurance for long distance ambulation. She also demonstrates safe ambulation without AD use this session with mild sway due to hip weakness. Electronically signed by: Yvon Hager, PT, DPT Please sign and return to therapist. Thank you for your referral.
== END 2023-02-20 10:37 | disposition home or self-care (01) ==
LOC: HO.PT 15:00
PROVIDERS: PCP Internal Medicine; Visit Provider Physician Assistant
DX: Z96.651 Presence of right artificial knee joint (principal)
CPT/HCPCS: 97110; 97112; 97116; 97140; 97162; 97530

== ENCOUNTER 2022-11-03 11:21 | Outpatient (AMB) | payer MEDICARE, SELFPAY ==
[2022-11-03 11:25] VITALS: BMI 30.4
--- NOTE | 2022-11-03 11:25 | MHC.OFFVIS ---
Intake Vital Signs 11/03/22 11:25 Height 5 ft 2 in Weight 166 lb BMI 30.4 Intake Visit Reasons: PO RT TKA 08/05/22 NE Intake Note: Conchis is a 72 year old female who presents today with a walker for a post op appointment for her right TKA 08/05/22 NE. Patient reports having some soreness on the lateral aspect of her knee. She states that physical therapy is went well and she stopped going due to her improvements. Denies numbness and tingling. Allergies environmental allergies Allergy (Intermediate, Verified 11/03/22 11:26) Sneezing, itchy eyes erythromycin base Allergy (Intermediate, Verified 11/03/22 11:) Blister Seasonal Allergies Allergy (Intermediate, Verified 11/03/22 11:) Sneezing, itchy eyes, congestion HPI PO RT TKA 08/05/22 NE HPI Details 72-year-old female who presents in the office today 2 months status post right total knee arthroplasty, which was performed on 08/05/[address] Cardoza. The patient reports soreness on the lateral aspect of the right knee. She reports physical therapy is going well. She states she stop attending due to improvements. She denies numbness or tingling. Patient is ambulating without the use of any assistive devices. [facility] Medical History ADD (attention deficit disorder) Asthma Depression High cholesterol HTN (hypertension) Osteoarthritis Osteoarthritis of right knee Overactive bladder Seasonal allergies Thrombocytosis Surgical History History of colon resection Hx of colonoscopy Hx of surgical procedure Hx of tonsillectomy Hx of wisdom tooth extraction Social History Household Members: Significant Other Housing: House Are you a primary reproductive healthcare assistant to a significant other at home: No Do you presently have visiting nurse or other home services: No Alcohol intake: never Patient Tobacco Use Status: Never used Tobacco Substance Use Type: Marijuana service: No Current occupational status: employed 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 Surgical scar intact. No signs of infection. Full ROM is 0-120 degrees. NVI. Psych Mental Status: mental status grossly normal Assessment & Plan Assessment & Plan (1) Status post total right knee replacement: Comment: Right knee arthroplasty 08/05/2022 NE Code(s): Z96.651 - Presence of right artificial knee joint Plan Ms. Le is a 72-year-old female who presents in the office today 2 months status post right total knee arthroplasty, which was performed on 08/05/[address] Cardoza. The patient reports soreness on the lateral aspect of the right knee. She reports physical therapy is going well. She states she stop attending due to improvements. She denies numbness or tingling. Patient is ambulating without the use of any assistive devices. 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 This has been provided to her. She may return to normal activities as tolerated. Follow up will be in 3 months, or sooner if needed. Patient Instructions: Scribed for Sydnee Quinn PA-C by Devora Nieto territory sales manager medical, on 11/03/2022 at 11:24 am, EST. Your attestation Coding Level of Care Code Global (18003) Diagnoses Status post total right knee replacement Z96.651
== END 2022-11-03 11:41 | disposition home or self-care (01) ==
PROVIDERS: Visit Provider Physician Assistant
DX: Z96.651 Presence of right artificial knee joint (principal)
CPT/HCPCS: 99024

== ENCOUNTER → 2022-11-03 11:21 | Outpatient (BNVA) | payer MEDICARE, SELFPAY | PROVIDERS: Visit Provider Physician Assistant ==

== ENCOUNTER 2023-02-10 13:31 | Outpatient (AMB) | payer MEDICARE, SELFPAY ==
--- NOTE | 2023-02-10 13:35 | A.OFFVIS_ITS ---
Intake Vital Signs 02/10/23 13:37 Height 5 ft 2 in Weight 166 lb BMI 30.4 Intake Visit Reasons: OV-RT TKA 08/05/22 NE-F/U Intake Note: Conchis is a 72 year old female who presents today for a follow up for her right TKA 08/05/22 NE. Patient reports having some discomfort after tripping on a rug. No other concerns today. Allergies environmental allergies Allergy (Intermediate, Verified 02/10/23 13:37) Sneezing, itchy eyes erythromycin base Allergy (Intermediate, Verified 02/10/23 13:37) Blister Seasonal Allergies Allergy (Intermediate, Verified 02/10/23 13:37) Sneezing, itchy eyes, congestion HPI OV-RT TKA 08/05/22 NE-F/U HPI Details 72-year-old female who presents in the o ffice today 6 months status post right total knee arthroplasty, which was performed on 08/05/[address] Cardoza. The patient reports she is having some discomfort after she tripped over a rug and hit her knee. She has no other concerns today. [facility] Medical History ADD (attention deficit disorder) Asthma Depression High cholesterol HTN (hypertension) Osteoarthritis Osteoarthritis of right knee Overactive bladder Seasonal allergies Thrombocytosis Surgical History History of colon resection Hx of colonoscopy Hx of surgical procedure Hx of tonsillectomy Hx of wisdom tooth extraction Social History Household Members: Significant Other Housing: House Are you a primary hospice patient care secretary to a significant other at home: No Do you presently have visiting nurse or other home services: No Alcohol intake: never Patient Tobacco Use Status: Never used Tobacco Substance Use Type: Marijuana service: No Current occupational status: employed 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 No surrounding erythema or joint effusion. No signs of infection. Full ROM. NVI. Assessment & Plan Assessment & Plan (1) Status post total right knee replacement: Comment: Right knee arthroplasty 08/05/2022 NE Code(s): Z96.651 - Presence of right artificial knee joint Plan Ms. Le is a 72-year-old female who presents in the office today 6 months status post right total knee arthroplasty, which was performed on 08/05/[address] Cardoza. The patient reports she is having some discomfort after she tripped over a rug and hit her knee. She has no other concerns today. She was educated should she need to have dental work she can call the office for an antibiotic. She will follow up in 6 months, or sooner if needed. Patient Instructions: Scribed for Sydnee Quinn PA-C by Devora Nieto nurses medical assistants phlebotomists, on 02/10/2023 at 1:34 pm, EST. Coding Level of Care Code Est Pt Level 3 (70734) Diagnoses Status post total right knee replacement Z96.651
[2023-02-10 13:37] VITALS: BMI 30.4
== END 2023-02-10 15:14 | disposition home or self-care (01) ==
PROVIDERS: PCP Internal Medicine; Visit Provider Physician Assistant
DX: Z47.1 Aftercare following joint replacement surgery (principal); Z96.651 Presence of right artificial knee joint
CPT/HCPCS: 99213

== ENCOUNTER 2023-02-10 15:27 | Outpatient (REF) | payer MEDICARE, SELFPAY ==
--- NOTE | ~2023-02-10 | MM_ITS ---
EXAMINATION: MM SCREENING DIGITAL BREAST TOMOSYNTHESIS, BILATERAL CLINICAL INFORMATION: Screening. Asymptomatic. COMPARISON: Mammography: This study is compared with prior exams dating back to 2019. TECHNIQUE: Digital breast tomosynthesis is performed in both the craniocaudal and mediolateral oblique views along with computer-aided detection (CAD). Synthesized 2D images are generated from the tomosynthesis. FINDINGS: There are scattered areas of fibroglandular density (ACR BI-RADS breast composition Category b). There are no significant masses, abnormal calcifications, or other abnormalities. Bilateral, coarse, benign calcifications are present in each breast. Some of the calcifications lie within small benign well-circumscribed masses territory sales representative of involuting fibroadenomata. MM/MM tomosynthesis screening BI IMPRESSION: No mammographic evidence of malignancy. ASSESSMENT: BI-RADS BI-RADS 2 - Benign Findings RECOMMENDATION: Routine annual mammography screening. 1 year F/U This examination should not preclude the clinical evaluation of a suspicious palpable abnormality. This patient's information was entered into a reminder system with a target due date for their next mammogram.
== END 2023-02-10 15:28 | disposition home or self-care (01) ==
LOC: HO.MAMMO 15:27
PROVIDERS: PCP Internal Medicine; Visit Provider Internal Medicine
DX: Z12.31 Encounter for screening mammogram for malignant neoplasm of breast (principal)
CPT/HCPCS: 77063; 77067; 99212

== ENCOUNTER → 2023-02-10 15:30 | Outpatient (BNV) | payer MEDICARE, SELFPAY | PROVIDERS: PCP Internal Medicine; Visit Provider Radiology Diagnostic Radiology | DX: Z12.31 Encounter for screening mammogram for malignant neoplasm of breast (principal) | CPT/HCPCS: 77063; 77067 ==

== ENCOUNTER 2023-05-05 14:01 | Outpatient (REF) | payer MEDICARE, SELFPAY ==
[2023-05-05 14:22] LABS: MANUAL DIFF FLAG NO
[2023-05-05 15:27] LABS: Basophils Absolute Auto 0.1 X10*3/uL (0.0-0.2); Basophils Percent Auto 0.9 % (0-2); Eosinophils Absolute Auto 0.3 X10*3/uL (0.0-0.4); Eosinophils Percent Auto 3.6 % (0-4); Hematocrit 43.7 % (37.0-47.0); Hemoglobin 14.2 g/dl (12.0-16.0); Imm Gran Abs Auto 0.03 X10*3/uL (0.00-0.03); Imm Gran Pct Auto 0.4 % (0.0-0.4); Lymphocytes Absolute Auto 2.4 X10*3/uL (1.2-4.9); Lymphocytes Percent Auto 31.1 % (20-40); Mean Corpuscular HGB Conc 32.5 g/dl (31.0-35.0); Mean Corpuscular Hemoglobin 28.1 pg (27.0-33.0); Mean Corpuscular Volume 86.5 fL (80.0-98.0); Mean Platelet Volume 10.6 fL (9.4-12.3); Monocytes Absolute Auto 0.7 X10*3/uL (0.1-1.2); Monocytes Percent Auto 8.4 % (2-11); Neutrophils Absolute Auto 4.4 x10*3/uL (2.0-8.3); Neutrophils Percent Auto 55.6 % (45-73); Platelet Count 289 X10*3/uL (160-400); Red Blood Count 5.05 X10*6/uL (4.20-5.50); Red Cell Distribution Width 13.4 % (11.0-16.0); White Blood Count 7.8 X10*3/uL (4.8-10.8)
[2023-05-05 15:55] LABS: Alanine Aminotransferase 15 U/L (0-31); Albumin Level 4.4 g/dL (3.5-5.0); Alkaline Phosphatase 93 U/L (39-117); Anion Gap 10 (12-20); Aspartate Amino Transferase 19 U/L (5-31); Bilirubin Total 0.5 mg/dL (0.0-1.0); Blood Urea Nitrogen 17 mg/dL (9-16); Calcium 10.1 mg/dL (8.4-10.2); Carbon Dioxide 34 mmol/L (22-29); Chloride 102 mmol/L (96-108); Cholesterol 193 mg/dL (<200); Estimated Glomerular Filt Rate > 60; Glucose Random 111 mg/dL (60-115); HDL Cholesterol 54 mg/dL (>40); LDL Cholesterol Calculated 108 mg/dL (<100); Potassium 4.6 mmol/L (3.3-5.1); Sodium 141 mmol/L (135-145); Triglycerides 155 mg/dL (<150)
[2023-05-05 16:26] LABS: Vitamin B12 682 pg/mL (200-900)
== END 2023-05-05 14:02 | disposition home or self-care (01) ==
LOC: HO.LAB 14:01
PROVIDERS: PCP Internal Medicine; Visit Provider Internal Medicine
DX: E78.00 Pure hypercholesterolemia, unspecified (principal); K11.7 Disturbances of salivary secretion; K14.4 Atrophy of tongue papillae; R73.01 Impaired fasting glucose
CPT/HCPCS: 36415; 80053; 80061; 82607; 85025

== ENCOUNTER 2023-06-23 15:05 | Outpatient (REF) | payer MEDICARE, OTHER, SELFPAY | END 2023-06-23 15:06 | disposition home or self-care (01) | LOC: HO.LNP 15:05 | PROVIDERS: Visit Provider Otolaryngology | DX: B37.9 Candidiasis, unspecified (principal) | CPT/HCPCS: 87102; 87106 ==

== ENCOUNTER 2023-07-23 08:58 | Outpatient (REF) | payer MEDICARE, SELFPAY ==
--- NOTE | ~2023-07-23 | XR_ITS ---
EXAMINATION: XR BILATERAL KNEES CLINICAL INFORMATION: Pain and unspecified knee. COMPARISON: 09/18/2022 TECHNIQUE: AP standing, lateral and sunrise views of each knee. FINDINGS: Right Knee: Redemonstration of right knee total arthroplasty in satisfactory position. Hardware appears intact. Small suprapatellar effusion. Alignment maintained. Left Knee: Redemonstration of advanced degenerative changes in the medial compartment with joint space narrowing and marginal osteophytes. Severe degenerative changes in the patellofemoral joint with lateral subluxation and narrowing as well as hypertrophic change. No significant joint effusion. Redemonstration of well corticated ossification adjacent to the superior lateral aspect of the patella, possibly related to old trauma. XR/XR knee RT 3V IMPRESSION: 1. Right knee total arthroplasty in satisfactory position. Hardware appears intact. 2. Severe degenerative changes left knee.
--- NOTE | ~2023-07-23 | XR_ITS ---
EXAMINATION: XR BILATERAL KNEES CLINICAL INFORMATION: Pain and unspecified knee. COMPARISON: 09/18/2022 TECHNIQUE: AP standing, lateral and sunrise views of each knee. FINDINGS: Right Knee: Redemonstration of right knee total arthroplasty in satisfactory position. Hardware appears intact. Small suprapatellar effusion. Alignment maintained. Left Knee: Redemonstration of advanced degenerative changes in the medial compartment with joint space narrowing and marginal osteophytes. Severe degenerative changes in the patellofemoral joint with lateral subluxation and narrowing as well as hypertrophic change. No significant joint effusion. Redemonstration of well corticated ossification adjacent to the superior lateral aspect of the patella, possibly related to old trauma. XR/XR knee LT 3V IMPRESSION: 1. Right knee total arthroplasty in satisfactory position. Hardware appears intact. 2. Severe degenerative changes left knee.
== END 2023-07-23 08:59 | disposition home or self-care (01) ==
LOC: HO.HOSX 08:58
PROVIDERS: Visit Provider Orthopaedic Surgery
DX: M17.12 Unilateral primary osteoarthritis, left knee (principal); Z96.651 Presence of right artificial knee joint; M65.319 Trigger thumb, unspecified thumb
CPT/HCPCS: 20610; 73562; 99212; J0665; J1100

== ENCOUNTER 2023-07-23 13:52 | Outpatient (AMB) | payer MEDICARE, SELFPAY ==
--- NOTE | 2023-07-23 14:21 | A.OFFVIS_ITS ---
Intake Vital Signs 07/23/23 14:22 Height 5 ft 2 in Weight 166 lb BMI 30.4 Intake Visit Reasons: Newprob-LTknee pain/interested cortisone injection Intake Note: Conchis is a 73 year old female who presents today for a new problem visit with complaints of left knee pain. Hx of RT TKA 08/05/22 NE. She reports that she has had pain in the left knee for about 3 weeks now, she is interested in having cortisone injections. Allergies environmental allergies Allergy (Intermediate, Verified 07/23/23 14:26) Sneezing, itchy eyes erythromycin base Allergy (Intermediate, Verified 07/23/23 14:26) Blister Seasonal Allergies Allergy (Intermediate, Verified 07/23/23 14:26) Sneezing, itchy eyes, congestion HPI Newprob-LTknee pain/interested cortisone injection HPI Details Conchis is a 73 year old female who presents today for a new problem visit with complaints of left knee pain. Hx of RT TKA 08/05/22 NE. She reports that she has had pain in the left knee for about 3 weeks now, she is interested in having cortisone injections. She has known left knee OA.. [facility] Medical History Thrombocytosis ADD (attention deficit disorder) Depression Asthma Overactive bladder HTN (hypertension) Seasonal allergies Osteoarthritis Osteoarthritis of right knee High cholesterol Surgical History Hx of surgical procedure Hx of wisdom tooth extraction Hx of colonoscopy Hx of tonsillectomy History of colon resection Social History Household Members: Significant Other Housing: House Are you a primary career development counselor to a significant other at home: No Do you presently have visiting nurse or other home services: No Alcohol intake: never Comment: aware of trip hazard Patient Tobacco Use Status: Never used Tobacco Substance Use Type: Marijuana service: No Current occupational status: employed 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 Resp Other: No audible wheezing Effort & Inspection: normal respiratory effort Back/Spine/Pelvis Cervical Spine: normal cervical lordosis Skin General skin exam: no rashes or lesions noted Neuro General: no focal motor deficits Extrem Other: Left knee TTP medial joint line No effusion Stable to ligamentous exam + gait antalgia Psych Appearance: grossly normal and well kempt Mental Status: mental status grossly normal Speech and movement: Normal speech and movement present Affect: normal affect Attitude: cooperative Office Procedures Joint Injection/Drain Joint Injection/Drain Details: Injected 1 mL of Decadron and 3 mL 1% lidocaine and 3 mL of 0.25% Marcaine. Site was prepped using aseptic technique. Patient tolerated the procedure well. Primary Site: left knee Approach Used: anterolateral Coding - Large joint Procedure code (CPT) selection complete Results Reviewed Results Reviewed: I personally reviewed relevant radiographs. Right total knee arthroplasty in expected post operative position with no hardware complications or evidence of loosening Left knee moderate OA Assessment & Plan Assessment & Plan (1) Status post total right knee replacement: Comment: Right knee arthroplasty 08/05/2022 NE Code(s): Z96.651 - Presence of right artificial knee joint Plan: Doing well. no issues. (2) Arthritis of left knee: Code(s): M17.12 - Unilateral primary osteoarthritis, left knee Plan: Injected left knee. (3) Trigger thumb: Code(s): M65.319 - Trigger thumb, unspecified thumb Plan: Referral to Dr Palomino Plan injected the left knee today. follow up no sooner than 3 months for repeat injection. She has complaints of Trigger Thumb, I have placed referral to colleague Alanis Palomino in Hand Surgery for these concern Orders: Orders XR knee standing BI 07/23/23 M25.569 - Pain in unspecified knee Referrals Hand Surgery Referral M65.319 - Trigger thumb, unspecified thumb Coding Level of Care Code Est Pt Level 4 (98646) Diagnoses Status post total right knee replacement Z96.651 Arthritis of left knee M17.12 Trigger thumb M65.319 CPT Codes Coding - Large joint: 42035 - Large joint ([id number])
[2023-07-23 14:22] VITALS: BMI 30.4
== END 2023-07-23 16:00 ==
PROVIDERS: PCP Internal Medicine; Visit Provider Orthopaedic Surgery
DX: M17.12 Unilateral primary osteoarthritis, left knee (principal); Z96.651 Presence of right artificial knee joint; M65.319 Trigger thumb, unspecified thumb
CPT/HCPCS: 20610; 99214

== ENCOUNTER → 2023-08-31 14:52 | Outpatient (BNVA) | payer MEDICARE, SELFPAY | PROVIDERS: PCP Internal Medicine; Visit Provider Physician Assistant | DX: M65.311 Trigger thumb, right thumb (principal) | CPT/HCPCS: 20550; 20552; 99212; J1100 ==

== ENCOUNTER 2024-02-16 15:26 | Outpatient (REF) | payer MEDICARE, SELFPAY ==
--- NOTE | ~2024-02-16 | MM_ITS ---
EXAMINATION: MM SCREENING DIGITAL BREAST TOMOSYNTHESIS, BILATERAL CLINICAL INFORMATION: Screening. Asymptomatic. COMPARISON: Mammography: Comparison is made with available priors TECHNIQUE: Digital breast mammography with tomosynthesis is performed in both the craniocaudal and mediolateral oblique views along with computer-aided detection (CAD). FINDINGS: The breasts are heterogeneously dense, which may obscure small masses (ACR BI-RADS breast composition Category c). Grouped coarse and dystrophic benign appearing calcifications bilaterally are stable. There are no significant masses, abnormal calcifications, or other abnormalities. MM/MM tomosynthesis screening BI IMPRESSION: No mammographic evidence of malignancy. ASSESSMENT: BI-RADS BI-RADS 2 - Benign Findings RECOMMENDATION: Routine annual mammography screening. 1 year F/U This examination should not preclude the clinical evaluation of a suspicious palpable abnormality. This patient's information was entered into a reminder system with a target due date for their next mammogram. Electronically signed by: Hue Gonzalez DO 02/29/2024 03:47 PM JINA
== END 2024-02-16 15:27 | disposition home or self-care (01) ==
LOC: HO.MAMMO 15:26
PROVIDERS: PCP Internal Medicine; Visit Provider Internal Medicine
DX: Z12.31 Encounter for screening mammogram for malignant neoplasm of breast (principal)
CPT/HCPCS: 77063; 77067

== ENCOUNTER → 2024-02-16 15:30 | Outpatient (BNV) | payer MEDICARE, SELFPAY | PROVIDERS: PCP Internal Medicine; Visit Provider Internal Medicine | DX: Z12.31 Encounter for screening mammogram for malignant neoplasm of breast (principal) | CPT/HCPCS: 77063; 77067 ==

== ENCOUNTER 2024-04-26 09:02 | Outpatient (REF) | payer MEDICARE, SELFPAY ==
--- NOTE | ~2024-04-26 | XR_ITS ---
EXAMINATION: XR HAND 3 OR MORE VIEWS RIGHT HISTORY: M79.641 - Pain in right hand COMPARISON: There are no prior studies available for comparison. FINDINGS: Three views of the right hand are submitted. Osseous mineralization is normal. There is no fracture or dislocation. There is severe osteoarthritis of the 1st carpometacarpal joint, the MCP joint of the thumb, the DIP joint of the index finger, and the PIP joint of the 5th finger, with joint space narrowing and osteophyte formation. The soft tissues are unremarkable. XR/XR hand RT min 3V IMPRESSION: Osteoarthritis of the right hand as described. Electronically signed by: Fernando Ortiz MD 05/03/2024 02:42 PM EST
== END 2024-04-26 09:03 | disposition home or self-care (01) ==
LOC: HO.HOSX 09:02
PROVIDERS: PCP Internal Medicine; Visit Provider Physician Assistant
DX: M79.641 Pain in right hand (principal); M18.11 Unilateral primary osteoarthritis of first carpometacarpal joint, right hand
CPT/HCPCS: 73130; 99212

== ENCOUNTER 2024-04-26 09:02 | Outpatient (AMB) | payer MEDICARE, SELFPAY ==
[2024-04-26 09:05] VITALS: BMI 30.4
--- NOTE | 2024-04-26 09:05 | MHC.OFFVIS ---
Vital Signs 04/26/24 09:05 Height 5 ft 2 in Weight 166 lb BMI 30.4 Intake Visit Reasons: ov- RT thumb pain, last injection 08/31/23 Intake Note: Conchis is a 73 year old right hand dominant female who presents today for a follow up of right thumb pain, last injection 08/31/23. Patient reports last injection provided her with relief with locking and catching however she continues to have pain. Her pain is located at her CMC palm side. 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 I last saw her 08/31/2023 for right trigger thumb. She had an injection which she states gave her significant relief however her pain has returned and she does continue to have some decreased sports marketing internship strength and limitations with daily activities due to the pain. She denies locking or catching of the joint. [facility] Medical History (Reviewed 07/23/23 @ 14:26 by Angelica Vergara [facility]) Thrombocytosis ADD (attention deficit disorder) Depression Asthma Overactive bladder HTN (hypertension) Seasonal allergies Osteoarthritis Osteoarthritis of right knee High cholesterol Surgical History Hx of surgical procedure Hx of wisdom tooth extraction Hx of colonoscopy Hx of tonsillectomy History of colon resection Social History Household Members: Significant Other Housing: House Are you a primary resident care supervisor to a significant other at home: No Do you presently have visiting nurse or other home services: No Alcohol intake: never Comment: aware of trip hazard Patient Tobacco Use Status: Never used Tobacco Substance Use Type: Marijuana service: No Current occupational status: employed 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 Pain with CMC grind. She is able to make a full fist and fully extend. NVI. Results Reviewed Results Reviewed: X-rays of the right hand obtained in the office today and reviewed by me show significant degenerative arthritis of the CMC joint Assessment & Plan Assessment & Plan (1) Arthritis of carpometacarpal (CMC) joint of right thumb: Code(s): M18.11 - Unilateral primary osteoarthritis of first carpometacarpal joint, right hand Category: Medical Plan: We discussed options which include conservative vs operative treatment. Since the patient has been symptomatic for several months and it is impacting their daily life, the decision was made to undergo right CMC arthroplasty. We discussed risk, benefits and alternatives. Risk including but not limited to infection, stiffness, decreased sports marketing internship strength nerve/tissue damage to surrounding areas. She does understand all this and would like to proceed with right CMC arthroplastywith Dr Palomino. She will be booked accordingly. Plan We discussed options which include conservative vs operative treatment. Since the patient has been symptomatic for several months and it is impacting their daily life, the decision was made to undergo right CMC arthroplasty. We discussed risk, benefits and alternatives. Risk including but not limited to infection, stiffness, decreased sports marketing internship strength nerve/tissue damage to surrounding areas. She does understand all this and would like to proceed with right CMC arthroplastywith Dr Palomino. She will be booked accordingly. Orders: Orders XR hand RT min 3V Today M79.641 - Pain in right hand XR hand LT min 3V Today M79.642 - Pain in left hand Coding Level of Care Code Est Pt Level 4 (17502) Complex EM visit Add On G2211 Diagnoses Arthritis of carpometacarpal (CMC) joint of right thumb M18.11
== END 2024-04-26 09:35 | disposition home or self-care (01) ==
PROVIDERS: PCP Internal Medicine; Visit Provider Physician Assistant
DX: M18.11 Unilateral primary osteoarthritis of first carpometacarpal joint, right hand (principal)
CPT/HCPCS: 99214; G2211

== ENCOUNTER → 2024-04-26 09:19 | Outpatient (BNV) | payer MEDICARE, SELFPAY | PROVIDERS: PCP Internal Medicine; Visit Provider Radiology Diagnostic Radiology | DX: M18.11 Unilateral primary osteoarthritis of first carpometacarpal joint, right hand (principal) | CPT/HCPCS: 73130 ==

== ENCOUNTER → 2024-08-12 15:40 | Outpatient (REF) | payer MEDICARE, SELFPAY ==
--- NOTE | 2024-08-12 15:45 | ECG_ITS ---
Test Reason : z79.899 Blood Pressure : */* mmHG Vent. Rate : 56 BPM Atrial Rate : 56 BPM P-R Int : 180 ms QRS Dur : 88 ms QT Int : 414 ms P-R-T Axes : 70 77 36 degrees QTcB Int : [address] & T wave abnormality, consider lateral ischemia Abnormal ECG When compared with ECG of 07-Aug-2022 14:14, Inverted T waves have replaced nonspecific T wave abnormality in Lateral leads Referred By: Daylin Brandon Electronically Signed By: FARIHA CASINAO MD
== END ==
LOC: HO.CARD 15:40
PROVIDERS: PCP Internal Medicine; Visit Provider Counselor Addiction (Substance Use Disorder)
DX: I49.9 Cardiac arrhythmia, unspecified (principal); Z79.899 Other long term (current) drug therapy
CPT/HCPCS: 93005

== ENCOUNTER → 2024-08-12 15:45 | Outpatient (BNV) | payer MEDICARE, SELFPAY | PROVIDERS: PCP Internal Medicine; Visit Provider Internal Medicine Cardiovascular Disease | DX: R00.1 Bradycardia, unspecified (principal) | CPT/HCPCS: 93010 ==

== ENCOUNTER 2024-11-22 10:51 | Outpatient (REF) | payer MEDICARE, SELFPAY ==
--- OUTSIDE RECORDS SUMMARY | 2024-08-08 09:00 | XMS_ITS ---
Author Organization [facility] Address [address] [place] [address] Care Team Providers Care Assembler Carbon Brushes Name Role Phone Ro Armstrong Primary Care Provider Nikole Herndon [phone] Allergies Allergen (clinical drug ingredient) Drug/Non Drug [...] Negative Encounters Encounter Location Date Provider Diagnosis [facility] [address] [place] [address] 08/08/2024 Nikole Lazaro Plan Of Treatment No Information Progress Notes * Elvira LE:1950 (74 yo F)Acc No.[id number]:08/08/2024 Progress Notes Patient: Conchis CONNOR Provider: Ty Lazaro DPM :1950 A ge:74 Y S ex:Female Date:08/08/2024 Address:[address] [place], [place] [id number] Pcp:Ro Armstrong Subjective: * Chief Complaints: * [...] enies. C ardiovascular: Pacemaker d enies. M NUMBERER AND WIRER d enies. W PW d enies. C [...] C affeine: yes. Marital status: Single. 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 D rug/Alcohol: A RACHEL-C (Standard) [...] DPM Date: 0 08/08/2024 Generated for Angelina kauffman/Tiffanie/Kylieitting on: 0 11/23/2024 11:51 AM EDT
== END 2024-11-22 10:52 | disposition home or self-care (01) ==
LOC: HO.HOSX 10:51
PROVIDERS: Visit Provider Orthopaedic Surgery
DX: Z13.89 Encounter for screening for other disorder (principal)

== ENCOUNTER 2024-11-29 08:38 | Outpatient (REF) | payer MEDICARE, SELFPAY ==
--- OUTSIDE RECORDS SUMMARY | 2024-08-08 09:00 | XMS_ITS ---
Author Organization [facility] Address [address] [place] [address] Care Team Providers Care Head Doffer Name Role Phone Ro Armstrong Primary Care Provider Nikole Herndon [phone] Allergies Allergen (clinical drug ingredient) Drug/Non Drug [...] Negative Encounters Encounter Location Date Provider Diagnosis [facility] [address] [place] [address] 08/08/2024 Nikole Lazaro Plan Of Treatment No Information Progress Notes * Elvira LE:1950 (74 yo F)Acc No.[id number]:08/08/2024 Progress Notes Patient: Conchis CONNOR Provider: Ty Lazaro DPM :1950 A ge:74 Y S ex:Female Date:08/08/2024 Address:[address] [place], [place] [id number] Pcp:Ro Armstrong Subjective: * Chief Complaints: * [...] enies. C ardiovascular: Pacemaker d enies. 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 W PW d enies. C [...] C affeine: yes. Marital status: Single. 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 D rug/Alcohol: A RACHEL-C (Standard) [...] 08/08/2024 Generated for Angelina kauffman/Tiffanie/Sophy on: 0 11/30/2024 08:50 AM EDT
--- OUTSIDE RECORDS SUMMARY | 2024-11-30 08:51 | XMS_ITS | Encounter Summary ---
Author Organization [employer] Address [address] [place] [address] Care Team Providers Care Laryngologist Name Role Phone Rosa Rosenbaum OD Primary Care Provider [phone] Encounter Details Date Type Department Care Team (Latest Contact Info) Description 05/04/2018 [facility] CONVERSIONS Dental, Provider, DDS Social History Tobacco Use Types Packs/Day Years Used Date Smoking Tobacco: Never Assessed Comments Unknown Sex and Gender Information Value Date Recorded Sex Assigned at Female 02/24/2022 10:14 AM EDT Legal Sex Female 10:14 AM EDT Gender Identity Not on file Sexual Orientation Not on file documented as of this encounter Plan of Treatment Not on file documented as of this encounter Visit Diagnoses Not on filedocumented in this encounter Care Teams Laryngologist Relationship Specialty Start Date End Date Rosa Rosenbaum OD [address] [place] [id number] PCP - General Optometry 04/14/19 05/04/23 documented as of this encounter
== END 2024-11-29 08:39 | disposition home or self-care (01) ==
LOC: HO.HOSX 08:38
PROVIDERS: Visit Provider Orthopaedic Surgery
DX: Z13.89 Encounter for screening for other disorder (principal)

== ENCOUNTER 2024-11-30 10:54 | Outpatient (REF) | payer MEDICARE, SELFPAY ==
--- NOTE | ~2024-11-30 | XR_ITS ---
EXAMINATION: XR HAND 3 OR MORE VIEWS LEFT HISTORY: M79.642 - Pain in left hand COMPARISON: There are no prior studies available for comparison. FINDINGS: Three views of the left hand are submitted. The bones are osteopenic. There is no fracture or dislocation. There is severe osteoarthritis of the DIP joints, the MCP joint of the thumb, and the 1st carpometacarpal joint. The soft tissues are unremarkable. XR/XR hand LT min 3V IMPRESSION: Osteoarthritis of the left hand as described. Electronically signed by: Fernando Ortiz MD 11/30/2024 12:38 PM EDT
== END 2024-11-30 10:55 | disposition home or self-care (01) ==
LOC: HO.HOSX 10:54
PROVIDERS: PCP Internal Medicine; Visit Provider Orthopaedic Surgery
DX: M18.12 Unilateral primary osteoarthritis of first carpometacarpal joint, left hand (principal); M65.342 Trigger finger, left ring finger; M65.341 Trigger finger, right ring finger; M79.642 Pain in left hand; M79.645 Pain in left finger(s)
CPT/HCPCS: 20600; 73130; 99212; J1010; J2003

== ENCOUNTER 2024-11-30 10:54 | Outpatient (AMB) | payer MEDICARE, SELFPAY ==
[2024-11-30 11:10] VITALS: BMI 30.4
--- NOTE | 2024-11-30 11:10 | MHC.OFFVIS ---
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 States pain started in April.No injury she can recall . Pain is worsen with lifting, gripping and twisting motion. Patient has tried using a brace in the past with very little relief. She is also having numbness, tingling and locking of bilateral rinig fingers. Hx of right hand basal joint injection on 04/26/24 with P.A Ta-bear. 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 Her chief complaint today is of pain about the basal joint of her left thumb. It is worse with pinching and gripping activities. She also has bilateral ring finger trigger fingers but they are not painful. [facility] Medical History Thrombocytosis ADD (attention deficit disorder) Depression Asthma Overactive bladder HTN (hypertension) Seasonal allergies Osteoarthritis Osteoarthritis of right knee High cholesterol Surgical History Hx of surgical procedure Hx of wisdom tooth extraction Hx of colonoscopy Hx of tonsillectomy History of colon resection Social History Household Members: Significant Other Housing: House Are you a primary intensive care medicine specialist to a significant other at home: No Do you presently have visiting nurse or other home services: No Alcohol intake: never Comment: aware of trip hazard Patient Tobacco Use Status: Never used Tobacco Substance Use Type: Marijuana service: No Current occupational status: employed 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 Regarding her left hand she has a positive shoulder sign and positive CMC grind. She is most tender to palpation about the basal joint of the left thumb. No tenderness about the MCP joint or the 1st dorsal compartment. She also has visible catching of the ring finger on the left and also the ring finger on the right. They are not particularly painful She can make a fist and extend all of her digits. Office Procedures AMB Fracture Care Details: No fracture, injection Fracture Billing Code: Fracture Billing Code Assessment & Plan Assessment & Plan (1) Arthritis of carpometacarpal (CMC) joint of left thumb: Code(s): M18.12 - Unilateral primary osteoarthritis of first carpometacarpal joint, left hand Category: Medical (2) Trigger finger, left ring finger: Code(s): M65.342 - Trigger finger, left ring finger Category: Medical (3) Trigger finger, right ring finger: Code(s): M65.341 - Trigger finger, right ring finger Category: Medical Plan Assessment and plan: 1. Left basal joint osteoarthritis Injection today: 11/30/2024 2. Left ring finger trigger finger Not particularly painful 3. Right ring finger trigger finger Not particularly painful I educated the patient about these conditions. We discussed operative and non operative treatment options. I am not recommending surgery at this time. I discussed the risks and benefits of a steroid injection for the basal joint, which is her most symptomatic complaint. She wished to proceed with an injection today. She was also fitted with a neoprene thumb spica splint for the left hand. Injection #1 : The risks and benefits of a steroid injection including but not limited to risk of damage to blood vessels, nerve, tendon, infection, skin bleaching, persistent or worsening pain, and failure to improve symptoms were discussed with the patient and they wish to proceed with the steroid injection. Once consent was obtained the skin over the dorsum of the left basal joint was sterilely prepped. The joint was then injected with a combination of 1 mL of (40 mg/ml} Depo-Medrol and 0.25 % plain Marcaine. The patient appears to have tolerated the procedure well and with no complications. She had good relief before leaving clinic today. The trigger fingers are not bothering her very much right now. She understands that we can either use a steroid injection or treat them operatively if they get worse. She is happy with the current plan This point she can follow up PRN Orders: Orders XR hand LT min 3V Today M79.642 - Pain in left hand Coding Level of Care Code Est Pt Level 3 (72094) Diagnoses Arthritis of carpometacarpal (CMC) joint of left thumb M18.12 Trigger finger, left ring finger M65.342 Trigger finger, right ring finger M65.341 CPT Codes Fracture Care - Fracture Billing Code: Fracture Billing Code ([id number])
== END 2024-11-30 11:37 | disposition home or self-care (01) ==
LOC: HO.HOS 10:54
PROVIDERS: PCP Internal Medicine; Visit Provider Orthopaedic Surgery
DX: M18.12 Unilateral primary osteoarthritis of first carpometacarpal joint, left hand (principal); M65.342 Trigger finger, left ring finger; M65.341 Trigger finger, right ring finger
CPT/HCPCS: 20600; 99213

== ENCOUNTER → 2024-11-30 11:03 | Outpatient (BNV) | payer MEDICARE, SELFPAY | PROVIDERS: PCP Internal Medicine; Visit Provider Radiology Diagnostic Radiology | DX: M19.042 Primary osteoarthritis, left hand (principal) | CPT/HCPCS: 73130 ==

== ENCOUNTER 2024-12-19 14:46 | Outpatient (REF) | payer MEDICARE, SELFPAY ==
--- OUTSIDE RECORDS SUMMARY | 2024-08-08 09:00 | XMS_ITS ---
Author Organization [facility] Address [address] [place] [address] Care Team Providers Care Professor Of Forest Planning Name Role Phone Ro Armstrong Primary Care Provider Nikole Herndon [phone] Allergies Allergen (clinical drug ingredient) Drug/Non Drug Allergy documented on EMR Reaction Allergy Type Onset Date Status erythromycin Erythromycin Unknown Drug Allergy A ctive Medications Medication SIG (Take, Route, Fr equency, Duration) Notes Start Date End Date Status Microzide Active Rosuvastatin Calcium Active Nystatin Active Focalin Active Sertraline HCl Activ e oxyBUTYnin Active Colace Active Claritin Active Omeprazole Active Social History Tobacco Use: Social History Observation Description Date Details (start date - stop date) Never Smoker NA - NA Tobacco use other than smoking: Question Answer Notes Are you an other tobacco user? No Tobacco Control (Standard) Question Answer Notes Tobacco use: Nonsmoker AUDIT-C (Standard) Question Answer Notes Did you have a drink contain ing alcohol in the past year? Yes How often did you have a dri nk containing alcohol in the past year? Never (0 point) How many drinks did you have on a typical day when you were drinking in the past year? 1 or 2 drinks (0 point) How often did you have six o r more drinks on one occasion in the past year? Never (0 point) Points 0 Interpretation Negative Encounters Encounter Location Date Provider Diagnosis [facility] [address] [place] [address] 08/08/2024 Nikole Lazaro Plan Of Treatment No Information Progress Notes * Elvira LE:1950 (74 yo F)Acc No.[id number]:08/08/2024 Progress Notes Patient: Conchis CONNOR Provider: Ty Lazaro DPM :1950 A ge:74 Y S ex:Female Date:08/08/2024 Address:[address] [place], [place] [id number] Pcp:Ro Armstrong Subjective: * Chief Complaints: * * ROS: G eneral/Constitutional: Nausea d enies. V omiting d enies. H val Thirst d enies. L oss appetite d enies. C hills d enies. F atigue d enies.?Fever d enies. N ight Sweats d enies. U nexplained weight loss d enies. U nexplained weight gain d enies. H EENTM: Dentures d enies. D izziness d enies. G lasses/contacts a dmits. R etinopathy d enies. B lurred/double vision d enies. T MJ?denies. D ischarge/drainage d enies. I mplants d enies. S ore throat d enies. D ental implants d enies. H mima of hearing d enies. D ifficulty chewing/swallowing/speaking d enies. N ose bleeds d enies. S ore mouth d enies. ? R espiratory: On Oxygen d enies. P neumonia/pleurisy d enies.?Bronchitis d enies. E mphysema d enies. C oughing d enies. C ough blood?denies. S hortness of breath d enies. W heezing d enies. C ardiovascular: Pacemaker d enies. M VP EMERGING MEDIA d enies. W PW d enies. C HF d enies. H eart attack d enies. S eptal defect d enies. R apid beat d enies. C hest pain d enies. A trial Fib. d enies. M urmur/Palpitations d enies. G astrointestinal: Hemorrhoids d enies. S tomach/Abdominal pain d enies. D ark blood stool d enies. I rritable bowel d enies. C onstipation d enies. D iarrhea d enies. H ematology: Swelling d enies. C lots d enies. V aricose Veins d enies. B ruising d enies. B leeding problem d enies. G enitourinary: Blood urine d enies. F requent/Painfu/urination/bladder control d enies. K idney stones d enies. I nfection (UTI) d enies. N ephropathy d enies. s ex trans dis (STD) d enies. P rostate d enies. M usculoskeletal: Hammertoes d enies. B unions d enies. B ack Pain d enies. M uscle Cramps/ Resting d enies. M uscle cramps / walking d enies.?Generalized aches and pains d enies. W eakness d enies. I nteg.: Hawley d enies. S cars d enies. C orns/calluses?denies. I ngrown nails d enies. P ainful nails d enies. O pen Sores d enies. R ashes d enies. N eurologic: Difficulty sleeping d enies. B rain disorder d enies. N umbness d enies. B alance trouble d enies. C onfusion d enies. F ainting/blackouts d enies. T ingling d enies. T remors d enies. * Medical History: A nxiety, Arthritis, Asthma, Back,Hip,and Knee pain, Covid-19, Depression, Diverticulosis, High Blood Pressure, Reflux ( GERD), Sinusitis, Measles, Mumps, Chicken pox, Joint implants/screws. * Surgical History: r ight knee replacement 07/29/22, bowel resection 2012. * Family History: M other: , Foot problems, diagnosed with Other malignant neoplasm of unspecified site.?Father: , diagnosed with Diabetic - NIDDM. S iblings: diagnosed with Other malignant neoplasm of unspecified site. * Social History: T obacco Use: T obacco use other than smoking A re you an other tobacco user? N o Tobacco Control (Standard) T obacco use: N onsmoker D rugs/Alcohol: D rugs H ave you used drugs other than those for medical reasons in the past 12 months? Y es M iscellaneous: C affeine: yes. Marital status: Single. 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 D rug/Alcohol: A RACHEL-C (Standard) D id you have a drink containing alcohol in the past year? Y es H ow often did you have a drink containing alcohol in the past year? N ever (0 point) H ow many drinks did you have on a typical day when you were drinking in the past year? 1 or 2 drinks (0 point) H ow often did you have six or more drinks on one occasion in the past year? N ever (0 point) P oints 0 I nterpretation N egative * Medications: T aking oxyBUTYnin , Taking Rosuvastatin Calcium , Taking Microzide , Taking Sertraline HCl , Taking Focalin , Taking Nystatin , Taking Omeprazole , Taking Claritin , Taking Colace * Allergies: E rythromycin. Objective: * Vitals: Assessment: Plan: * Treatment: * Images: * The named appointment provid er may or may not be the originator of this progress note, and it is not deemed complete until electronically signed by the appointment provider. Sign off status: Pending * Provider: Ty Lazaro DPM Date: 0 08/08/2024 Generated for Angelina kauffman/Tiffanie/Sophy on: 0 12/19/2024 04:27 PM EDT
[2024-12-19 15:15] LABS: MANUAL DIFF FLAG NO
[2024-12-19 15:41] LABS: Hematocrit 43.5 % (37.0-47.0); Hemoglobin 14.9 g/dl (12.0-16.0); Imm Gran Abs Auto 0.03 X10*3/uL (0.00-0.03); Imm Gran Pct Auto 0.3 % (0.0-0.4); Lymphocytes Absolute Auto 2.4 X10*3/uL (1.2-4.9); Mean Corpuscular HGB Conc 34.3 g/dl (31.0-35.0); Mean Corpuscular Hemoglobin 29.2 pg (27.0-33.0); Mean Corpuscular Volume 85.1 fL (80.0-98.0); NRBC Abs Auto 0.000 X10*3/uL (0.0-0.012); NRBC Pct Auto 0.0 /100WBC (0.0-0.2); Platelet Count 247 X10*3/uL (160-400); Red Blood Count 5.11 X10*6/uL (4.20-5.50); White Blood Count 8.8 X10*3/uL (4.8-10.8)
--- OUTSIDE RECORDS SUMMARY | 2024-12-19 16:28 | XMS_ITS | Patient Health Record ---
Author Organization [facility] Address [address] [place] [address] Care Team Providers Care Ic Design Engineer Name Role Phone AnalisaRo truong Primary Care Provider UnavailNikole Crabtree [phone] Allergies Allergen (clinical drug ingredient) Drug/Non Drug Allergy documented on EMR Reaction Allergy Type Onset Date Status erythromycin Erythromycin Unknown Drug Allergy A ctive Reason For Referral No Information Medications Medication SIG (Take, Route, Fr equency, Duration) Notes Start Date End Date Status Microzide Active Rosuvastatin Calcium Active oxyBUTYnin Active Colace Active Claritin Active Omeprazole Active Nystatin Active Focalin Active Sertraline HCl Activ e Social History Tobacco Use: Social History Observation [...] Negative Encounters Encounter Location Date Provider Diagnosis [facility] [address] [place] [address] 07/22/2024 Nikole Lazaro [facility] [address] [place] [address] 08/08/2024 Nikole Lazaro Plan Of Treatment No Information Insurance Providers Payer Name Payer Address Payer Phone Subscriber Number Group Number Insured Name Patient Relationship to Insured Coverage Start Date Coverage End Date [facility] 65 Medicare Preferred [address] [place] [address] [id number] Mimi Conchis Self - patient is the insured Medical (General) History Medical History History ICD Code Anxiety Arthritis Asthma Back,Hip,and Knee pain covid-19 Depression Diverticulosis High Blood Pressure Reflux ( GERD) sinusitis Measles Mumps Chicken pox Joint implants/screws Surgical History Surgery Date(Month/Year) right knee replacement 07/29/22 bowel resection 2012
[2024-12-19 16:41] LABS: Alanine Aminotransferase 19 U/L (0-31); Albumin Level 4.6 g/dL (3.5-5.0); Alkaline Phosphatase 103 U/L (39-117); Anion Gap 17 (12-20); Aspartate Amino Transferase 29 U/L (5-31); Blood Urea Nitrogen 18 mg/dL (9-16); Calcium 9.9 mg/dL (8.4-10.2); Carbon Dioxide 28 mmol/L (22-29); Chloride 100 mmol/L (96-108); Estimated Glomerular Filt Rate > 60; Potassium 3.7 mmol/L (3.3-5.1); Sodium 141 mmol/L (135-145); Total Protein 7.8 g/dL (6.5-8.0)
[2024-12-19 16:48] LABS: Ferritin 75 ng/mL (10-250); Free T4 (Free Thyroxine) 0.95 ng/dL (0.71-1.85); Thyroid Stimulating Hormone 1.26 uIU/mL (0.32-4.0)
[2024-12-19 16:51] LABS: Renal w Reflex Lab Use Only Order verified
[2024-12-19 16:56] LABS: Vitamin B12 557 pg/mL (200-900)
[2024-12-24 19:43] LABS: VITAMIN D (1,25 OH) D3 46 pg/mL; Vit D (1,25-Dihydroxy) Total 46 pg/mL (18-72); Vitamin D (1,25 OH) D2 <8 pg/mL
== END 2024-12-19 14:47 | disposition home or self-care (01) ==
LOC: HO.LAB 14:46
PROVIDERS: PCP Internal Medicine; Visit Provider Counselor Addiction (Substance Use Disorder)
DX: F33.2 Major depressive disorder, recurrent severe without psychotic features (principal); F90.2 Attention-deficit hyperactivity disorder, combined type
CPT/HCPCS: 36415; 80048; 80051; 80076; 82310; 82565; 82607; 82652; 82728; 84100; 84436; 84439; 84443; 84480; 84481; 84520; 85025

== ENCOUNTER 2025-04-10 11:57 | Outpatient (REF) | payer MEDICARE, SELFPAY ==
[2025-04-10 12:08] LABS: MANUAL DIFF FLAG NO
[2025-04-10 12:28] LABS: Hematocrit 43.7 % (37.0-47.0); Hemoglobin 14.2 g/dl (12.0-16.0); Imm Gran Abs Auto 0.06 X10*3/uL (0.00-0.03); Imm Gran Pct Auto 0.7 % (0.0-0.4); Lymphocytes Absolute Auto 2.5 X10*3/uL (1.2-4.9); Mean Corpuscular HGB Conc 32.5 g/dl (31.0-35.0); Mean Corpuscular Hemoglobin 28.6 pg (27.0-33.0); Mean Corpuscular Volume 87.9 fL (80.0-98.0); NRBC Abs Auto 0.000 X10*3/uL (0.0-0.012); NRBC Pct Auto 0.0 /100WBC (0.0-0.2); Platelet Count 267 X10*3/uL (160-400); Red Blood Count 4.97 X10*6/uL (4.20-5.50); White Blood Count 8.4 X10*3/uL (4.8-10.8)
[2025-04-10 13:06] LABS: Alanine Aminotransferase 17 U/L (0-31); Albumin Level 4.4 g/dL (3.5-5.0); Alkaline Phosphatase 95 U/L (39-117); Anion Gap 12 (12-20); Aspartate Amino Transferase 23 U/L (5-31); Blood Urea Nitrogen 21 mg/dL (9-16); Calcium 9.8 mg/dL (8.4-10.2); Carbon Dioxide 28 mmol/L (22-29); Chloride 105 mmol/L (96-108); Cholesterol 218 mg/dL (<200); Estimated Glomerular Filt Rate 59; HDL Cholesterol 59 mg/dL (>40); Potassium 4.2 mmol/L (3.3-5.1); Sodium 141 mmol/L (135-145); Total Protein 7.7 g/dL (6.5-8.0); Triglycerides 163 mg/dL (<150)
== END 2025-04-10 11:58 | disposition home or self-care (01) ==
LOC: HO.LAB 11:57
PROVIDERS: PCP Internal Medicine; Visit Provider Internal Medicine
DX: M81.8 Other osteoporosis without current pathological fracture (principal); Q66.72 Congenital pes cavus, left foot; E78.00 Pure hypercholesterolemia, unspecified; F32.A Depression, unspecified; I10 Essential (primary) hypertension
CPT/HCPCS: 36415; 80053; 80061; 82306; 85025